=== PATIENT | female | born 1990 | race Caucasian/White ===

== ENCOUNTER 2017-02-07 12:51 | Emergency (ER) | payer OTHER ==
[~2017-02-07] VITALS: Ht 177.8 cm; Wt 71.4 kg
[~2017-02-07 12:51] MED LIST: PRENTAB26 PO
[2017-02-07 12:52] VITALS: TEMP 36.5; Ht 177.8 cm; Wt 71.4 kg
[2017-02-07] MEDS ORDERED: SODIUM CHLORIDE 0.9% 1000ML 1,000 ML IV STA (13:06)
[2017-02-07] MEDS ORDERED: ONDANSETRON INJ 2 MG/ML 2 ML VIAL IV STA (13:06)
--- NOTE | 2017-02-07 13:11 | EMERGENCY ROOM VISIT NOTE ---
History First contact with patient: 12:59 Chief Complaint: ABDOMINAL PAIN Stated Complaint: INTENSE UPPER ABD PAIN,VOMITTING History of Present Illness The patient is a 26 year old female who presents to the Emergency Department by private vehicle for evaluation of her epigastric pain. She reports that she worked a double shift last night and upon returning home, developed intense pain in her epigastrium. She tried to sleep, but her symptoms worsened. She describes pain to her back as well. She tried Pepto-Bismol without relief of symptoms. She took a warm shower which seemed to make her symptoms worse. She tried eating, but vomited her meal. There was no blood in her vomit. She reports no history of similar symptoms. She denies any previous history of abdominal surgeries. She rates her current discomfort as a 7/10. She denies any fevers, chills, headaches, dizziness, lightheadedness, chest pain, palpitations, shortness of breath, pleuritic pain, hemoptysis, hematochezia, melena, hematuria, or dysuria. She denies chance of . Review of Systems A complete 10-point Review of Systems was discussed with the patient, with pertinent positives and negatives listed in the History of Present Illness. All remaining Review of Systems questions can be considered negative unless otherwise specified. Past Medical/Surgical History Medical Problems: (1) Vaginal delivery Social History Smoking Status: Never Smoker Smokeless Tobacco Use: No Alcohol Use: none Drug Use: none Occupation Status: employed Current/Historical Medications Scheduled Control Pills ( Control Pills), 1 TAB PO DAILY Pantoprazole (Protonix), 40 MG PO DAILY Scheduled PRN Ondasetron Odt (Zofran Odt), 1 TAB SL Q6 PRN for Nausea or Vomiting Tramadol (Ultram), 1-2 TAB PO Q4H PRN for Pain Allergies Coded Allergies: Cefaclor (Verified Allergy, Unknown, 02/07/17) Physical Exam Vital Signs Date Time Temp Pulse Resp B/P Pulse Ox O2 Delivery O2 Flow Rate FiO2 02/07/17 15:53 71 14 109/66 99 02/07/17 15:17 71 14 101/64 100 Room Air 02/07/17 13:47 60 16 127/80 98 Room Air 02/07/17 13:07 63 02/07/17 12:52 36.5 66 18 128/86 98 Room Air Pain Rating (0-10): 7 Physical Exam VITAL SIGNS - Vital signs and nursing notes were reviewed. GENERAL - 26-year-old female appearing her stated age who is in no acute distress. Communicates well with provider and answers questions appropriately. NECK - Neck with FROM. Supple to palpation. No nuchal rigidity. LUNGS - Chest wall symmetric without accessory muscle use, intercostals retractions, or central cyanosis. Normal vesicular breath sounds CTA B/L. No wheezes, rales, or rhonchi appreciated. CARDIAC - RRR with S1/S2. No murmur, rubs, or gallops appreciated. ABDOMEN - Abdominal contour flat and without pulsations or visible masses. BS normoactive all four quadrants. Moderate tenderness to palpation appreciated in the epigastrium and RUQ. No guarding. No Rebound Tenderness. Negative Rovsing' s. Negative Wylie's. No palpable masses, hepatosplenomegaly, or ascites noted. PSYCH - A&Ox3 and cooperates fully with examiner. Pt is very pleasant and interacts well with examiner. Medical Decision & Procedures ER Provider Diagnostic Interpretation: Radiological imaging and reports were reviewed by myself. Radiologist's Interpretation as follows: ABDOMINAL ULTRASOUND, RIGHT UPPER QUADRANT HISTORY: RUQ/epigastric abd pain. COMPARISON: None. FINDINGS: Pancreas: The pancreatic tail is obscured by overlying bowel gas. The remaining portions of the pancreas are within normal limits. Liver: Mildly enlarged measuring 19 cm in length. No hepatic masses. Gallbladder: No gallbladder wall thickening. No gallstones. A 7 mm echogenic nodule at the fundus. This is nonmobile and favors a polyp. CBD: 5 mm. Right kidney: No hydronephrosis. IMPRESSION: 1. A 7 mm polyp at the gallbladder fundus. Follow-up should be performed to ensure stability. 2. No gallstones. 3. Mild hepatomegaly. Laboratory Results 02/07/17 13:20 Red Blood Count 4.53, Mean Corpuscular Volume 88.1, Mean Corpuscular Hemoglobin 30.7, Mean Corpuscular Hemoglobin Concent 34.8, Mean Platelet Volume 10.2, Neutrophils (%) (Auto) 65.2, Lymphocytes (%) (Auto) 27.5, Monocytes (%) (Auto) 6.2, Eosinophils (%) (Auto) 0.3, Basophils (%) (Auto) 0.3, Neutrophils # (Auto) 4.11, Lymphocytes # (Auto) 1.73, Monocytes # (Auto) 0.39, Eosinophils # (Auto) 0.02, Basophils # (Auto) 0.02 02/07/17 13:20 Test 02/07/17 12:58 02/07/17 13:20 Urine Color YELLOW Urine Appearance CLOUDY (CLEAR) Urine pH 5.0 (4.5-7.5) Urine Specific [place] 1.025 (1.000-1.030) Urine Protein NEG (NEG) Urine Glucose (UA) NEG (NEG) Urine Ketones NEG (NEG) Urine Occult Blood NEG (NEG) Urine Nitrite NEG (NEG) Urine Bilirubin NEG (NEG) Urine Urobilinogen NEG (NEG) Urine Leukocyte Esterase MODERATE (NEG) Urine WBC (Auto) 10-30 /hpf (0-5) Urine RBC (Auto) 0-4 /hpf (0-4) Urine Hyaline Casts (Auto) 1-5 /lpf (0-5) Urine Epithelial Cells (Auto) >30 /lpf (0-5) Urine Bacteria (Auto) 1+ (NEG) Urine Test NEG (NEG) White Blood Count 6.30 K/uL (4.8-10.8) Red Blood Count 4.53 M/uL (4.2-5.4) Hemoglobin 13.9 g/dL (12.0-16.0) Hematocrit 39.9 % (37-47) Mean Corpuscular Volume 88.1 fL (80-100) Mean Corpuscular Hemoglobin 30.7 pg (25-34) Mean Corpuscular Hemoglobin Concent 34.8 g/dl (32-36) Platelet Count 233 K/uL (130-400) Mean Platelet Volume 10.2 fL (7.4-10.4) Neutrophils (%) (Auto) 65.2 % Lymphocytes (%) (Auto) 27.5 % Monocytes (%) (Auto) 6.2 % Eosinophils (%) (Auto) 0.3 % Basophils (%) (Auto) 0.3 % Neutrophils # (Auto) 4.11 K/uL (1.4-6.5) Lymphocytes # (Auto) 1.73 K/uL (1.2-3.4) Monocytes # (Auto) 0.39 K/uL (0.11-0.59) Eosinophils # (Auto) 0.02 K/uL (0-0.5) Basophils # (Auto) 0.02 K/uL (0-0.2) RDW Standard Deviation 40.4 fL (36.4-46.3) RDW Coefficient of Variation 12.6 % (11.5-14.5) Immature Granulocyte % (Auto) 0.5 % Immature Granulocyte # (Auto) 0.03 K/uL (0.00-0.02) Anion Gap 9.0 mmol/L (3-11) Est Creatinine Clear Calc Drug Dose 111.4 ml/min Estimated GFR () 113.7 Estimated GFR (Non- 98.1 BUN/Creatinine Ratio 18.3 (10-20) Calcium Level 9.5 mg/dl (8.5-10.1) Total Bilirubin 0.4 mg/dl (0.2-1) Aspartate Amino Transf (AST/SGOT) 17 U/L (15-37) Alanine Aminotransferase (ALT/SGPT) 35 U/L (12-78) Alkaline Phosphatase 66 U/L (45-117) Total Protein 8.7 gm/dl (6.4-8.2) Albumin 4.2 gm/dl (3.4-5.0) Globulin 4.5 gm/dl (2.5-4.0) Albumin/Globulin Ratio 0.9 (0.9-2) Lipase 123 U/L (73-393) Medications Administered Medications (Trade) Dose Ordered Sig/Gil Route Start Time Stop Time Status Last Admin Dose Admin Sodium Chloride (Nss 1000ml) 1,000 ml @ 200 mls/hr Q5H STAT IV 02/07/17 13:06 02/07/17 16:11 DC 02/07/17 13:41 200 MLS/HR Miscellaneous Medication (Gi Cocktail) 24 ml NOW ONCE PO 02/07/17 13:15 02/07/17 13:16 DC 02/07/17 13:42 24 ML Ondansetron HCl (Zofran Inj) 4 mg NOW STAT IV 02/07/17 13:06 02/07/17 13:09 DC 02/07/17 13:41 4 MG Lidocaine HCl (Viscous Lidocaine 2% Soln) 20 ml STK-MED ONCE .ROUTE 02/07/17 13:41 02/07/17 13:42 DC 02/07/17 13:39 20 ML Al Hydroxide/Mg Hydroxide (Maalox Susp) 30 ml STK-MED ONCE .ROUTE 02/07/17 13:41 02/07/17 13:42 DC 02/07/17 13:38 30 ML Morphine Sulfate 2 mg 2 mg NOW STAT IV 02/07/17 14:51 02/07/17 14:52 DC 02/07/17 15:10 2 MG Pantoprazole Sodium/Syringe (Protonix Inj/ Syringe) 10 ml @ 5 mls/min NOW ONCE IV 02/07/17 15:00 02/07/17 15:01 DC 02/07/17 15:10 5 MLS/MIN ED Course Patient was seen and evaluated by myself. Labs were drawn, saline lock in place. The patient was hydrated with normal saline at a rate of 200 mL per hour. She was treated with 4 mg Zofran and a GI cocktail. Gallbladder ultrasound was ordered. Laboratory results demonstrate no acute leukocytosis, worrisome anemia, or bandemia. The patient has no significant electrolyte abnormalities. Urinalysis does not suggest infection.: Her ultrasound as above. She reports persistent discomfort. She was treated with 2 mg morphine and IV Protonix. The patient was reevaluated and reports feeling much better at this time. The patient was educated on following up the next 24-48 hours with her primary care provider for repeat abdominal exam. She was placed on Protonix as well as Zofran and Ultram for home. She will return to the emergency department in the setting of any change or worsening symptoms. Patient discharged home afebrile and in good condition. Medical Decision Given the patient's presentation and stated complaints, I did elect to perform the above-mentioned workup. The patient presents today with epigastric abdominal discomfort. She has no fever leukocytosis. She has minimal discomfort in her epigastrium. She is not drank alcohol recently. She has no chest pain. Her labs are concerning at this point. She responded well to pain medication as well as Protonix. She will be treated with Protonix at home. She will follow closely with her primary care provider in 24-48 hours for repeat abdominal exam or return to the emergency department for changing/ worsening symptoms. Patient educated on worrisome symptoms for return visit to the emergency department. Patient discharged home afebrile and in good condition. In the evaluation and treatment of this patient, the following differential diagnoses were considered: Cholecystitis, ascending cholangitis, choledocholithiasis, gastritis, gastroenteritis, retrocecal appendicitis, bowel perforation, inflammatory bowel, ACS, CT, PE, amongst others. Impression Primary Impression: Epigastric abdominal pain Departure Information Dispostion Home / Self-Care Condition GOOD Prescriptions Pantoprazole (Protonix) 40 Mg Tab 40 MG PO DAILY for 14 Days, #14 TAB Prov: Yonathan Santo PA-C 02/07/17 Tramadol (Ultram) 50 Mg Tab 1-2 TAB PO Q4H Y for Pain, #10 TAB For Initial Treatment Prov: Yonathan Santo PA-C 02/07/17 Ondasetron Odt (ZOFRAN ODT) 4 Mg Tab 1 TAB SL Q6 Y for Nausea or Vomiting for 5 Days, #20 TAB Prov: Yonathan Santo PA-C 02/07/17 Referrals No Doctor, Assigned (PCP) Patient Instructions Abdominal Pain - [facility], [facility] Additional Instructions You have been treated in the Emergency Department for your Abdominal Pain. Laboratory results and Imaging studies have ruled out any emergent or surgical issues that might be causing you this pain. You should take Protonix as prescribed. This is a drug that will help with any possible indigestion that might be contributing to your pain/discomfort. You should take this medicine EVERY day for the best results. This medicine is not intended to be used for immediate relief of symptoms, but rather to reduce the risk of recurrence of symptoms. You can consider using TUMS/Maalox for relief of any indigestion that you might be experiencing. This drug is fast acting and can be used for immediate relief of your indigestion symptoms. You have been prescribed Zofran to be used for any nausea or vomiting. Take as prescribed. You have been prescribed Ultram to be used for pain control. You cannot drive or consume alcohol while on this medicine. This medicine should only be used for pain that cannot be controlled with [id number]-[id number] pain medicines. You should eat a bland diet for the next few days. Some suggested bland dietary foods: Bananas, Rice, Applesauce, [place], or Boiled Chicken. These foods are easy to digest and help you to recover at a faster rate. All meals for the next few days should be small to cement mason helper in bowel rest. For pain control, you can use the following [id number]-oenhrel medicines (if >12 yo): - Regular strength (325mg/tab) Tylenol (acetaminophen) 2 tabs every 4-6 hours as needed. Do not exceed 12 tablets in a 24 hour period. Avoid taking more than 4 grams (4000 mg) of Tylenol per day. This includes any other sources of acetaminophen you may take on a regular basis. - Regular strength (200 mg/tab) Advil (ibuprofen) 1-2 tabs every 4-6 hours as needed. Do not exceed a dose of 3200 mg per day. You should schedule a follow-up appointment with your Primary Care Provider in 1 -2 days for further evaluation from today's Emergency Department visit. Your Primary Care Provider should be involved in the addition of any new medications. Your Primary Care Provider may also refer you to a Ekg Technician, a doctor who specializes in the digestive system. Return to the Emergency Department if your current symptoms worsen despite treatment course outlined above, or if you develop any of the following symptoms : worsening abdominal pain, associated chest or back pain, worsening nausea/ vomiting, dizziness, shortness of breath, blood in your vomit, or fainting.
[2017-02-07] MEDS ORDERED: GI COCKTAIL PO ONE (13:15)
[2017-02-07] MEDS ORDERED: LIDOCAINE HCL 2% VISC SOLN 20 ML UDC ONE (13:41)
[2017-02-07] MEDS ORDERED: ALUMINUM/MAGNESIUM SUSP 30 ML UDC ONE (13:41)
[2017-02-07 13:50] LABS: BASO % 0.3 %; BASO ABS # 0.02 K/uL (0-0.2); COMPLETE YES; EOS % 0.3 %; HEMATOCRIT 39.9 % (37-47); IG% 0.5 %; LYMPH % 27.5 %; LYMPH ABS # 1.73 K/uL (1.2-3.4); MEAN CELL VOLUME 88.1 fL (80-100); MEAN CORPUSCULAR HEMOGLOBIN 30.7 pg (25-34); MEAN CORPUSCULAR HGB CONC 34.8 g/dl (32-36); MEAN PLATELET VOLUME 10.2 fL (7.4-10.4); MONO % 6.2 %; NEUT % 65.2 %; PLATELET COUNT 233 K/uL (130-400); RED BLOOD COUNT 4.53 M/uL (4.2-5.4)
[2017-02-07 14:00] LABS: URINE APPEARANCE CLOUDY (CLEAR); URINE BILIRUBIN NEG (NEG); URINE COLOR YELLOW; URINE EPITHELIAL CELL AUTO >30 /lpf (0-5); URINE NITRITE NEG (NEG); URINE SPECIFIC GRAVITY 1.025 (1.000-1.030); UROBILINOGEN NEG (NEG); ZZUR CULT IF INDIC CLEAN CATCH YES
[2017-02-07 14:03] LABS: MANUAL MICROSCOPIC REQUIRED? NO; REVIEW REQ? NO
[2017-02-07 14:11] LABS: BUN/CREATININE RATIO 18.3 (10-20); CALCIUM 9.5 mg/dl (8.5-10.1); CREATININE 0.82 mg/dl (0.60-1.20); POTASSIUM 3.3 mmol/L (3.5-5.1)
[2017-02-07 14:14] LABS: ALB/GLOB RATIO 0.9 (0.9-2)
--- NOTE | 2017-02-07 14:35 | DIAGNOSTIC IMAGING REPORT ---
ABDOMINAL ULTRASOUND, RIGHT UPPER QUADRANT HISTORY: RUQ/epigastric abd pain. COMPARISON: None. FINDINGS: Pancreas: The pancreatic tail is obscured by overlying bowel gas. The remaining portions of the pancreas are within normal limits. Liver: Mildly enlarged measuring 19 cm in length. No hepatic masses. Gallbladder: No gallbladder wall thickening. No gallstones. A 7 mm echogenic nodule at the fundus. This is nonmobile and favors a polyp. CBD: 5 mm. Right kidney: No hydronephrosis. IMPRESSION: 1. A 7 mm polyp at the gallbladder fundus. Follow-up should be performed to ensure stability. 2. No gallstones. 3. Mild hepatomegaly. Electronically signed by: Mahendra Uribe M.D. 02/07/2017 2:33 PM Dictated Date/Time: 02/07/2017 2:31 PM
[2017-02-07] MEDS ORDERED: BCPILLS PO (14:46)
[2017-02-07] MEDS ORDERED: MoRPHine SULFATE 2 MG/ML CARP IV STA (14:51)
[2017-02-07] MEDS ORDERED: PANTOprazole INJ 40 MG in SYRINGE 0 ML IV ONE (15:00)
[2017-02-07] MEDS ORDERED: TRAM-10 PO (15:29)
[2017-02-07] MEDS ORDERED: PANT40TA PO (15:29)
[2017-02-07] MEDS ORDERED: ONDA4TAB10 SL (15:29)
[2017-02-07 15:53] VITALS: BP 109/66; PULSE 71; O2SAT 99
== END 2017-02-07 15:50 | disposition home or self-care (01) ==
LOC: C.EDB 12:53 → C.EDC 15:50
DX: R10.13 Epigastric pain (principal); Z79.899 Other long term (current) drug therapy; Z88.8 Allergy status to other drugs, medicaments and biological substances

== ENCOUNTER 2017-06-13 09:00 | Inpatient (IN) | payer SELFPAY ==
[~2017-06-13] VITALS: Ht 177.8 cm; Wt 73.0 kg
[~2017-06-13 09:00] MED LIST changes: +BCPILLS PO; -PRENTAB26 PO; +TRAM-10 PO
[2017-06-13] MEDS ORDERED: ONDANSETRON INJ 2 MG/ML 2 ML VIAL IV STA (09:12)
[2017-06-13] MEDS ORDERED: SODIUM CHLORIDE 0.9% 1000ML 1,000 ML IV STA (09:12)
[2017-06-13] MEDS ORDERED: MoRPHine SULFATE 4 MG/ML 1 ML CARP\\VIAL IV STA ×2 (09:12→11:58)
--- NOTE | 2017-06-13 09:23 | EMERGENCY ROOM VISIT NOTE ---
History First contact with patient: 09:05 Chief Complaint: ABDOMINAL PAIN Stated Complaint: ABD PAIN History of Present Illness The patient is a 27 year old female who presents to the Emergency Room with complaints of upper abdominal pain. The patient states her symptoms started around 7:30 AM. She states that there is a bandlike pain in the upper abdomen. She states it is primarily in the epigastrium and right upper quadrant. The patient rates her discomfort a 7/10. She patient has had nausea and vomiting. The patient had a similar episode earlier this year but had not had any trouble since and therefore did not follow up. She denies any earache, sore throat, cough, fever. She denies any urinary symptoms. She denies any hematemesis, melena or hematochezia. The patient did not initially share her recent history. She states that last month she underwent an elective of twins at 13 weeks' gestation. This was done surgically. She has done well since then. She has had some bleeding but no significant change in the bleeding and discharge. Review of Systems A 10 system review of systems was completed with positives and pertinent negatives listed in the HPI. Past Medical/Surgical History Medical Problems: (1) Abdominal pain (2) Gallbladder polyp (3) Vaginal delivery Surgical Problems: (1) H/O Social History Smoking Status: Never Smoker Alcohol Use: none Drug Use: none Occupation Status: employed Current/Historical Medications Scheduled Control Pills ( Control Pills), 1 TAB PO DAILY Physical Exam Vital Signs Date Time Temp Pulse Resp B/P (MAP) Pulse Ox O2 Delivery O2 Flow Rate FiO2 06/13/17 11:05 52 109/64 100 06/13/17 09:02 36.7 86 16 125/85 95 Room Air Physical Exam VITALS: Vitals are noted on the nurse's note and reviewed by myself. Vital signs stable. GENERAL: This is a 27-year-old femaleno acute distress, nondiaphoretic, well- developed well-nourished. SKIN: The skin was without rashes, erythema, edema, or bruising. There is no tenting of the skin. Capillary reflex less than 2 seconds. HEAD: Normocephalic atraumatic. EARS: The external ears are normal in appearance. EYES: Pupils equal round and reactive to light and accommodation. Conjunctivae without injection, sclerae without icterus. Extraocular movements intact. NOSE: Patent, turbinates without inflammation or discharge. MOUTH: Mucous membranes moist. Tonsils are not enlarged. Pharynx without erythema or exudate. Uvula midline. Airway patent. Tongue does not deviate. NECK: Supple without nuchal rigidity. No JVD. HEART: Regular rate and rhythm without murmurs gallops or rubs. LUNGS: Clear to auscultation bilaterally without wheezes, rales or rhonchi. No retractions or accessory muscle use. ABDOMEN: Positive bowel sounds x 4. Soft, marked right upper quadrant tenderness, moderate epigastric tenderness, without masses or organomegaly. Wylie sign positive. MUSCULOSKELETAL: No muscle atrophy, erythema, or edema noted. Full range of motion in all extremities. Strength 5/5 throughout. NEURO: Patient was alert and oriented to person place and time. No focal neurological deficits. Medical Decision & Procedures ER Provider Diagnostic Interpretation: CT OF THE ABDOMEN AND PELVIS WITH CONTRAST CLINICAL HISTORY: Upper abdominal pain. Recent elective . COMPARISON STUDY: Right upper quadrant ultrasound performed earlier today. TECHNIQUE: Following IV administration of 116 mL of Optiray-320, axial images of the abdomen and pelvis were obtained from the lung bases to the proximal femurs. Images were reviewed in the axial, sagittal, and coronal planes. IV contrast was administered without complication. A dose lowering technique was utilized adhering to the principles of ALARA. CT DOSE: 329.11 mGy.cm FINDINGS: Lung bases are clear. The liver, spleen, adrenal glands, kidneys and pancreas are normal. There is no biliary or pancreatic ductal dilatation. A 5 mm calcific density within the dependent aspect of the gallbladder represents a stone. This likely corresponds to the abnormality on prior ultrasound. There is trace pericholecystic fluid extending into the mukul hepatis. The gallbladder is not distended. There is no evidence for a bowel obstruction. The appendix is normal. There is mild thickening of the endometrium which appears slightly heterogeneous. The endometrium measures 1.1 cm in thickness. There is no lymphadenopathy. IMPRESSION: 1. Cholelithiasis with trace pericholecystic fluid. If clinical suspicion for acute cholecystitis, a hepatobiliary scan could be obtained. 2. Slightly thickened heterogeneous endometrium. This may be related to the phase of menstrual cycle however could be correlated with beta hCG levels to exclude the possibility of retained products of conception given the clinical history. 3. Normal appendix. No bowel obstruction. GALLBLADDER-ABD LIMITED HISTORY: 27 years-old Female acute right upper quadrant abdominal pain. COMPARISON: Right upper quadrant ultrasound 02/07/2017 TECHNIQUE: Multiple real-time sonographic images of the abdominal right upper quadrant were obtained assessing grayscale appearance and color flow. FINDINGS: Pancreas is partially disc or by bowel gas with the imaged portions appearing to be within normal limits. Liver measures up to 19.7 cm and demonstrates no focal mass lesions. Hepatic parenchyma is mildly echogenic which may reflect underlying fatty infiltration. The right kidney measures 11.4 x 4.6 x 5.0 cm and is unremarkable. Again noted is a nonmobile echogenic mural based lesion along the dependent fundal gallbladder, 7 mm which appears unchanged from comparison suggesting gallbladder polyp without significant change. No gallbladder wall thickening or shadowing cholelithiasis. Common bile duct is normal, 0.5 cm. IMPRESSION: 1. No cholelithiasis or sonographic evidence of acute cholecystitis. 2. Unchanged 7 mm gallbladder polyp. This could be followed in another 3-6 months to confirm stability. 3. No biliary ductal dilation. 4. Probable mild fatty infiltration of the liver. Laboratory Results 06/13/17 09:22 Red Blood Count 4.13, Mean Corpuscular Volume 89.8, Mean Corpuscular Hemoglobin 30.5, Mean Corpuscular Hemoglobin Concent 34.0, Mean Platelet Volume 10.3, Neutrophils (%) (Auto) 49.9, Lymphocytes (%) (Auto) 41.7, Monocytes (%) (Auto) 6.5, Eosinophils (%) (Auto) 1.5, Basophils (%) (Auto) 0.2, Neutrophils # (Auto) 2.59, Lymphocytes # (Auto) 2.17, Monocytes # (Auto) 0.34, Eosinophils # (Auto) 0.08, Basophils # (Auto) 0.01 06/13/17 09:22 Test 06/13/17 09:22 White Blood Count 5.20 K/uL (4.8-10.8) Red Blood Count 4.13 M/uL (4.2-5.4) Hemoglobin 12.6 g/dL (12.0-16.0) Hematocrit 37.1 % (37-47) Mean Corpuscular Volume 89.8 fL (80-100) Mean Corpuscular Hemoglobin 30.5 pg (25-34) Mean Corpuscular Hemoglobin Concent 34.0 g/dl (32-36) Platelet Count 206 K/uL (130-400) Mean Platelet Volume 10.3 fL (7.4-10.4) Neutrophils (%) (Auto) 49.9 % Lymphocytes (%) (Auto) 41.7 % Monocytes (%) (Auto) 6.5 % Eosinophils (%) (Auto) 1.5 % Basophils (%) (Auto) 0.2 % Neutrophils # (Auto) 2.59 K/uL (1.4-6.5) Lymphocytes # (Auto) 2.17 K/uL (1.2-3.4) Monocytes # (Auto) 0.34 K/uL (0.11-0.59) Eosinophils # (Auto) 0.08 K/uL (0-0.5) Basophils # (Auto) 0.01 K/uL (0-0.2) RDW Standard Deviation 41.1 fL (36.4-46.3) RDW Coefficient of Variation 12.6 % (11.5-14.5) Immature Granulocyte % (Auto) 0.2 % Immature Granulocyte # (Auto) 0.01 K/uL (0.00-0.02) Urine Color YELLOW Urine Appearance CLEAR (CLEAR) Urine pH 6.0 (4.5-7.5) Urine Specific [place] 1.025 (1.000-1.030) Urine Protein NEG (NEG) Urine Glucose (UA) NEG (NEG) Urine Ketones NEG (NEG) Urine Occult Blood NEG (NEG) Urine Nitrite NEG (NEG) Urine Bilirubin NEG (NEG) Urine Urobilinogen NEG (NEG) Urine Leukocyte Esterase TRACE (NEG) Urine WBC (Auto) 1-5 /hpf (0-5) Urine RBC (Auto) 0-4 /hpf (0-4) Urine Hyaline Casts (Auto) 1-5 /lpf (0-5) Urine Epithelial Cells (Auto) >30 /lpf (0-5) Urine Bacteria (Auto) NEG (NEG) Urine Test POS (NEG) Anion Gap 7.0 mmol/L (3-11) Est Creatinine Clear Calc Drug Dose 129.4 ml/min Estimated GFR () 136.7 Estimated GFR (Non- 117.9 BUN/Creatinine Ratio 26.9 (10-20) Calcium Level 8.8 mg/dl (8.5-10.1) Magnesium Level 2.1 mg/dl (1.8-2.4) Total Bilirubin 0.2 mg/dl (0.2-1) Aspartate Amino Transf (AST/SGOT) 11 U/L (15-37) Alanine Aminotransferase (ALT/SGPT) 16 U/L (12-78) Alkaline Phosphatase 67 U/L (45-117) Total Protein 8.0 gm/dl (6.4-8.2) Albumin 3.9 gm/dl (3.4-5.0) Globulin 4.1 gm/dl (2.5-4.0) Albumin/Globulin Ratio 1.0 (0.9-2) Lipase 124 U/L (73-393) Human Chorionic Gonadotropin, Quant 24 mIU/mL Medications Administered Medications (Trade) Dose Ordered Sig/Gil Route Start Time Stop Time Status Last Admin Dose Admin Sodium Chloride 1,000 ml @ 999 mls/hr Q1H1M STAT IV 06/13/17 09:12 06/13/17 10:12 DC 06/13/17 09:25 999 MLS/HR Ondansetron HCl (Zofran Inj) 4 mg NOW STAT IV 06/13/17 09:12 06/13/17 09:15 DC 06/13/17 09:26 4 MG Morphine Sulfate (MoRPHine SULFATE INJ) 4 mg NOW STAT IV 06/13/17 09:12 06/13/17 09:15 DC 06/13/17 09:26 4 MG Morphine Sulfate (MoRPHine SULFATE INJ) 4 mg NOW STAT IV 06/13/17 11:58 06/13/17 11:59 DC 06/13/17 12:20 4 MG ED Course The patient was seen and examined. Previous visits were reviewed. The patient does not have a fever or leukocytosis. She does not have any significant electrolyte abnormalities. Lipase is not elevated. Quantitative hCG is 24. Urinalysis suggests contamination. Urine test was positive. Ultrasound of the gallbladder suggests a polyp but no obvious acute cholecystitis or cholelithiasis A CT scan of the abdomen and pelvis with IV contrast was obtained and suggests acute cholecystitis after discussion with Dr. Silverio of radiology. The patient appears to have a gallstone and pericholecystic fluid. The patient was hydrated with normal saline solution She was given a total of 8 mg IV morphine The patient presents to the emergency department with right upper quadrant abdominal pain. She has a positive Wylie sign on examination. She does not have a fever or leukocytosis. However, on CT imaging there is suggestion of acute cholecystitis. The patient will require further evaluation and management in the hospital. I discussed the case with the hospitalist service and they will evaluate the patient. The patient underwent elective last month. The patient's quantitative hCG is 24. I suspect that this is a down trending of the hCG. The patient does not have any complaints of lower abdominal pain or cramping. The case was discussed with Dr. Roberts who agrees with the assessment and treatment plan. Medical Decision DIFFERENTIAL DIAGNOSIS: Hepatitis, cholecystitis, cholangitis, biliary colic, pancreatitis, pneumonia, subdiaphragmatic abscess, appendicitis, inguinal hernia , nephrolithiasis, inflammatory bowel disease, mesenteric adenitis, peptic ulcer disease, GERD, gastritis, pancreatitis, myocardial infarction, pericarditis, ruptured aortic aneurysm, appendicitis, gastroenteritis, bowel obstruction, splenic infarct, diverticulitis, mesenteric ischemia, metabolic, peritonitis, among others. Medication Reconcilliation Current Medication List: was personally reviewed by [place] Blood Pressure Screening Patient's blood pressure: Normal blood pressure Blood pressure disposition: Did not require urgent referral Impression Primary Impression: Cholecystitis Additional Impression: History of elective Departure Information Dispostion Admitted as an inpatient Referrals Ben Cantor M.D. (PCP) Patient Instructions My [facility] Problem Qualifiers
[2017-06-13 09:42] LABS: BASO % 0.2 %; BASO ABS # 0.01 K/uL (0-0.2); COMPLETE YES; EOS % 1.5 %; HEMATOCRIT 37.1 % (37-47); IG% 0.2 %; LYMPH % 41.7 %; LYMPH ABS # 2.17 K/uL (1.2-3.4); MEAN CELL VOLUME 89.8 fL (80-100); MEAN CORPUSCULAR HEMOGLOBIN 30.5 pg (25-34); MEAN PLATELET VOLUME 10.3 fL (7.4-10.4); MONO % 6.5 %; NEUT % 49.9 %; PLATELET COUNT 206 K/uL (130-400); RED BLOOD COUNT 4.13 M/uL (4.2-5.4)
[2017-06-13 09:48] LABS: URINE APPEARANCE CLEAR (CLEAR); URINE BILIRUBIN NEG (NEG); URINE COLOR YELLOW; URINE EPITHELIAL CELL AUTO >30 /lpf (0-5); URINE NITRITE NEG (NEG); URINE SPECIFIC GRAVITY 1.025 (1.000-1.030); UROBILINOGEN NEG (NEG); ZZUR CULT IF INDIC CLEAN CATCH NO
[2017-06-13 09:51] LABS: MANUAL MICROSCOPIC REQUIRED? NO; REVIEW REQ? NO
[2017-06-13 10:00] LABS: BUN/CREATININE RATIO 26.9 (10-20); CALCIUM 8.8 mg/dl (8.5-10.1); CREATININE 0.7 mg/dl (0.60-1.20); POTASSIUM 3.3 mmol/L (3.5-5.1)
--- NOTE | 2017-06-13 10:38 | DIAGNOSTIC IMAGING REPORT ---
GALLBLADDER-ABD LIMITED HISTORY: 27 years-old Female acute right upper quadrant abdominal pain. COMPARISON: Right upper quadrant ultrasound 02/07/2017 TECHNIQUE: Multiple real-time sonographic images of the abdominal right upper quadrant were obtained assessing grayscale appearance and color flow. FINDINGS: Pancreas is partially disc or by bowel gas with the imaged portions appearing to be within normal limits. Liver measures up to 19.7 cm and demonstrates no focal mass lesions. Hepatic parenchyma is mildly echogenic which may reflect underlying fatty infiltration. The right kidney measures 11.4 x 4.6 x 5.0 cm and is unremarkable. Again noted is a nonmobile echogenic mural based lesion along the dependent fundal gallbladder, 7 mm which appears unchanged from comparison suggesting gallbladder polyp without significant change. No gallbladder wall thickening or shadowing cholelithiasis. Common bile duct is normal, 0.5 cm. IMPRESSION: 1. No cholelithiasis or sonographic evidence of acute cholecystitis. 2. Unchanged 7 mm gallbladder polyp. This could be followed in another 3-6 months to confirm stability. 3. No biliary ductal dilation. 4. Probable mild fatty infiltration of the liver. The above report was generated using voice recognition software. It may contain grammatical, syntax or spelling errors. Electronically signed by: Edwardo Brody M.D. 06/13/2017 10:36 AM Dictated Date/Time: 06/13/2017 10:32 AM
[2017-06-13] MEDS ORDERED: OPTIRAY 320 IV PRN (11:15)
--- NOTE | 2017-06-13 11:40 | DIAGNOSTIC IMAGING REPORT ---
CT OF THE ABDOMEN AND PELVIS WITH CONTRAST CLINICAL HISTORY: Upper abdominal pain. Recent elective . COMPARISON STUDY: Right upper quadrant ultrasound performed earlier today. TECHNIQUE: Following IV administration of 116 mL of Optiray-320, axial images of the abdomen and pelvis were obtained from the lung bases to the proximal femurs. Images were reviewed in the axial, sagittal, and coronal planes. IV contrast was administered without complication. A dose lowering technique was utilized adhering to the principles of ALARA. CT DOSE: 329.11 mGy.cm FINDINGS: Lung bases are clear. The liver, spleen, adrenal glands, kidneys and pancreas are normal. There is no biliary or pancreatic ductal dilatation. A 5 mm calcific density within the dependent aspect of the gallbladder represents a stone. This likely corresponds to the abnormality on prior ultrasound. There is trace pericholecystic fluid extending into the mukul hepatis. The gallbladder is not distended. There is no evidence for a bowel obstruction. The appendix is normal. There is mild thickening of the endometrium which appears slightly heterogeneous. The endometrium measures 1.1 cm in thickness. There is no lymphadenopathy. IMPRESSION: 1. Cholelithiasis with trace pericholecystic fluid. If clinical suspicion for acute cholecystitis, a hepatobiliary scan could be obtained. 2. Slightly thickened heterogeneous endometrium. This may be related to the phase of menstrual cycle however could be correlated with beta hCG levels to exclude the possibility of retained products of conception given the clinical history. 3. Normal appendix. No bowel obstruction. Electronically signed by: Jeff Silverio M.D. 06/13/2017 11:38 AM Dictated Date/Time: 06/13/2017 11:24 AM
[2017-06-13] MEDS ORDERED: PIPERACILLIN/TAZOBACTAM 3.375 GM/100ML D5W IV STA (13:02)
[2017-06-13] MEDS ORDERED: ONDANSETRON INJ 2 MG/ML 2 ML VIAL IV PRN (13:15)
[2017-06-13] MEDS ORDERED: SODIUM CHLORIDE 0.9% 1000ML 1,000 ML IV SCH (13:30)
--- NOTE | 2017-06-13 13:48 | History and Physical ---
History & Physical Date & Time of Service: Jun 13, 2017 at 13:11 Chief Complaint: Abd Pain Primary Care Physician: Ben Cantor M.D. History of Present Illness Source: patient, hospital records This is a 27 year old female who presents to the ED with RUQ abdominal pain. Patient was seen in [facility] ER in January 2017 for RUQ pain and ultrasound showed gallbladder polyp. She was sent home and did not have recurrence until this morning, when she developed pain in RUQ and epigastrium radiating to her back. She states pain waxes and wanes "like contractions". Has associated N/V with multiple episodes of yellow emesis. Nausea is resolved after Zofran given in ER. Pain is now controlled after 2 doses of IV morphine in ER. Last meal was salad at 11 pm last night. Had a normal formed BM this morning. Had surgical on May 07, 2017 of twins at between 11 to 13 weeks gestation per patient. Following procedure she had a few weeks of vaginal bleeding which stopped, then had 4 days of menstruation ending 2 days ago. She is on oral contraception. She denies fever, chills, chest pain, SOB, diarrhea, UTI symptoms. Past Medical/Surgical History Medical Problems: (1) Gallbladder polyp Status: Chronic (2) Vaginal delivery Status: Resolved Surgical Problems: (1) H/O Status: Chronic Family History Cardiac disorder GRANDMOTHER Diabetes mellitus GRANDFATHER GRANDMOTHER Social History Smoking Status: Never Smoker Alcohol Use: none Drug Use: none Occupational Status: employed (works as [employer]) Immunizations History of Influenza Vaccine: Unknown History of Tetanus Vaccine?: Unknown Multi-Drug Resistant Organisms History of MDRO: No Allergies Coded Allergies: Cefaclor (Verified Allergy, Unknown, POSSIBLE RASH CHILD, 06/13/17) PER GRAHAM OLGUIN [id number] INTERVIEW WITH PATIENT- PATIENT STATES ABOVE Home Medications Scheduled Control Pills ( Control Pills), 1 TAB PO DAILY Scheduled PRN Oxycodone/Acetaminophen 5MG/325MG (Percocet 5MG/325MG), 1-2 TABLETS PO Q4H PRN for Pain Review of Systems Ten systems reviewed and negative except as noted in HPI. Physical Exam Vital Signs Date Time Temp Pulse Resp B/P (MAP) Pulse Ox O2 Delivery O2 Flow Rate FiO2 06/13/17 11:05 52 109/64 100 06/13/17 09:02 36.7 86 16 125/85 95 Room Air General Appearance: WD/WN, no apparent distress Head: normocephalic, atraumatic Eyes: normal inspection, sclerae normal ENT: hearing grossly normal, pharynx normal Neck: supple, trachea midline Respiratory/Chest: lungs clear, normal breath sounds, no respiratory distress, no accessory muscle use Cardiovascular: regular rate, rhythm, no edema, no murmur Abdomen/GI: normal bowel sounds, soft, + pertinent finding (tender in RUQ. + Wylie's sign) Extremities/Musculoskelatal: no calf tenderness, no pedal edema Neurologic/Psych: alert, normal mood/affect, oriented x 3 Skin: normal color, warm/dry Diagnostics Laboratory Results Results Past 24 Hours Test 06/13/17 09:22 06/13/17 12:58 Range/Units White Blood Count 5.20 4.8-10.8 K/uL Red Blood Count 4.13 4.2-5.4 M/uL Hemoglobin 12.6 12.0-16.0 g/dL Hematocrit 37.1 37-47 % Mean Corpuscular Volume 89.8 80-100 fL Mean Corpuscular Hemoglobin 30.5 25-34 pg Mean Corpuscular Hemoglobin Concent 34.0 32-36 g/dl Platelet Count 206 130-400 K/uL Mean Platelet Volume 10.3 7.4-10.4 fL Neutrophils (%) (Auto) 49.9 % Lymphocytes (%) (Auto) 41.7 % Monocytes (%) (Auto) 6.5 % Eosinophils (%) (Auto) 1.5 % Basophils (%) (Auto) 0.2 % Neutrophils # (Auto) 2.59 1.4-6.5 K/uL Lymphocytes # (Auto) 2.17 1.2-3.4 K/uL Monocytes # (Auto) 0.34 0.11-0.59 K/uL Eosinophils # (Auto) 0.08 0-0.5 K/uL Basophils # (Auto) 0.01 0-0.2 K/uL RDW Standard Deviation 41.1 36.4-46.3 fL RDW Coefficient of Variation 12.6 11.5-14.5 % Immature Granulocyte % (Auto) 0.2 % Immature Granulocyte # (Auto) 0.01 0.00-0.02 K/uL Urine Color YELLOW Urine Appearance CLEAR CLEAR Urine pH 6.0 4.5-7.5 Urine Specific [place] 1.025 1.000-1.030 Urine Protein NEG NEG Urine Glucose (UA) NEG NEG Urine Ketones NEG NEG Urine Occult Blood NEG NEG Urine Nitrite NEG NEG Urine Bilirubin NEG NEG Urine Urobilinogen NEG NEG Urine Leukocyte Esterase TRACE NEG Urine WBC (Auto) 1-5 0-5 /hpf Urine RBC (Auto) 0-4 0-4 /hpf Urine Hyaline Casts (Auto) 1-5 0-5 /lpf Urine Epithelial Cells (Auto) >30 0-5 /lpf Urine Bacteria (Auto) NEG NEG Urine Test POS NEG Sodium Level 142 136-145 mmol/L Potassium Level 3.3 3.5-5.1 mmol/L Chloride Level 107 98-107 mmol/L Carbon Dioxide Level 28 21-32 mmol/L Anion Gap 7.0 3-11 mmol/L Blood Urea Nitrogen 19 7-18 mg/dl Creatinine 0.70 0.60-1.20 mg/dl Est Creatinine Clear Calc Drug Dose 129.4 ml/min Estimated GFR () 136.7 Estimated GFR (Non- 117.9 BUN/Creatinine Ratio 26.9 10-20 Random Glucose 95 70-99 mg/dl Calcium Level 8.8 8.5-10.1 mg/dl Total Bilirubin 0.2 0.2-1 mg/dl Aspartate Amino Transf (AST/SGOT) 11 15-37 U/L Alanine Aminotransferase (ALT/SGPT) 16 12-78 U/L Alkaline Phosphatase 67 45-117 U/L Total Protein 8.0 6.4-8.2 gm/dl Albumin 3.9 3.4-5.0 gm/dl Globulin 4.1 2.5-4.0 gm/dl Albumin/Globulin Ratio 1.0 0.9-2 Lipase 124 73-393 U/L Human Chorionic Gonadotropin, Quant 24 mIU/mL Diagnostic Radiology GALLBLADDER-ABD LIMITED IMPRESSION: 1. No cholelithiasis or sonographic evidence of acute cholecystitis. 2. Unchanged 7 mm gallbladder polyp. This could be followed in another 3-6 months to confirm stability. 3. No biliary ductal dilation. 4. Probable mild fatty infiltration of the liver. CT OF THE ABDOMEN AND PELVIS WITH CONTRAST IMPRESSION: 1. Cholelithiasis with trace pericholecystic fluid. If clinical suspicion for acute cholecystitis, a hepatobiliary scan could be obtained. 2. Slightly thickened heterogeneous endometrium. This may be related to the phase of menstrual cycle however could be correlated with beta hCG levels to exclude the possibility of retained products of conception given the clinical history. 3. Normal appendix. No bowel obstruction. Impression Assessment and Plan ACUTE CHOLECYSTITIS Presents with RUQ pain, N/V Clinical exam consistent with cholecystitis Afebrile, no leukocytosis CT abdomen shows cholelithiasis with pericholecystic fluid Will place on Zosyn, IVF's, PRN antiemetics and analgesics Clear liquid diet, NPO after midnight, plan for OR tomorrow AM Consult general surgery- discussed with Ryan Olivares PA-C and Dr. Ortega, appreciate input HYPOKALEMIA Check magnesium Replace and monitor ENDOMETRIAL THICKENING ELEVATED HCG Patient is s/p surgical on 05/07/17 of twins, gestational age between 11 -[address] a/p showed mild endometrial thickening (1.1 cm), Hcg = [address] Lara, who said Hcg can take 4-6 weeks to normalize, recommended checking pelvic ultrasound and recheck Hcg in AM to see if it is downtrending, no contraindication to proceeding with surgery if ultrasound WNL DVT PROPHYLAXIS SCD's FULL CODE DISPOSITION Admission med/ surg Follows with Dr. Cantor ([place]) for primary care Patient seen in collaboration with Dr. Barahona. Please see his addendum. Attending Addendum Pt was seen and seen and examined. Agreed with Graham DOWLING assessment and plan. 27 year old female who presents to the ED with RUQ abdominal pain associated with N/V. Patient was seen in [facility] ER in January 2017 for RUQ pain and ultrasound showed gallbladder polyp. General- No acute distress Head- atraumatic Eyes- PERRL, EOMI, anicteric ENT- oropharynx clear Neck- supple, no JVD, no adenopathy Lungs- clear to auscultation and percussion Heart- regular rhythm; no murmur Abdomen- +RUQ tender Extremities- no calf tenderness Neuro- alert, oriented x 3; PERRL, EOMI; no facial palsy Skin- warm & dry ACUTE CHOLECYSTITIS Presents with RUQ pain, N/V Clinical exam consistent with cholecystitis Afebrile, no leukocytosis CT abdomen shows cholelithiasis with pericholecystic fluid Starting on Zosyn, IVF's, PRN antiemetics and analgesics Consult general surgery Keep NPO Lab, imaging reviewed Please refer to [facility] PAC documentation for other problems. Cale Barahona MD VTE Prophylaxis VTE Risk Assessment Done? Y/N: Yes Risk Level: Moderate
[2017-06-13 14:00] VITALS: BP 116/75; PULSE 64; TEMP 36.8; O2SAT 98; Ht 177.8 cm; Wt 73.0 kg
[2017-06-13] MEDS ORDERED: PIPERACILL/TAZOBAC IV 3.375 GM in DEXTROSE 5% 100ML IV ONE (14:00)
[2017-06-13] MEDS ORDERED: PIPERACILL/TAZOBAC CONSULT ACTIVE PRN (14:30)
[2017-06-13] MEDS: NSS + 20MEQ KCL 1000ML 1,000 ML IV SCH (14:55)
[2017-06-13] MEDS: POTASSIUM CHLR 10 MEQ / WTR 10 MEQ in PREMIXED WATER 100 ML IV SCH ×3 (14:56→18:10)
--- NOTE | 2017-06-13 14:56 | CONSULTATION REPORT ---
DATE OF CONSULTATION: 06/13/2017 ATTENDING PHYSICIAN: Yoan Ortega MD REASON FOR CONSULT: Cholecystitis. HISTORY OF PRESENT ILLNESS: The patient is a 27-year-old female with epigastric pain that started earlier this morning, was followed by nausea and several episodes of vomiting. She had some mid back pain as well. No fevers or chills. She had a salad for dinner at work last evening around 11. She had a similar pain in January of this year, was seen in the Emergency Room and diagnosed with a gallbladder polyp. She has not had any further symptoms in the interim. No bloating, fatty food intolerance or nausea or vomiting. PAST MEDICAL HISTORY: No ongoing medical problems. PAST SURGICAL HISTORY: She had a recent 05/07/2017. SOCIAL HISTORY: She is , has 3 children at home. 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 FAMILY HISTORY: She has an aunt who has had cholecystectomy. No biliary disease in her parents that she knows of. REVIEW OF SYSTEMS: GENERAL: No fevers or chills. She is in good health. ABDOMEN: No bloating, no fatty food intolerance. RESPIRATORY: No cough. No history of asthma and nonsmoker. OBJECTIVE: GENERAL: She appears in no acute distress. VITAL SIGNS: Temperature 36.7, pulse 52, respirations 16, blood pressure 100/64, pulse ox 100% on room air. HEENT: Unremarkable. No scleral icterus. HEART: Regular rate and rhythm. LUNGS: Clear to auscultation. ABDOMEN: Soft, nondistended, mild right upper quadrant tenderness but recently medicated with morphine. SKIN: Warm and dry, nonjaundiced. EXTREMITIES: Without edema. LABORATORY DATA: White count is 5200, hemoglobin 12.6, hematocrit 37.1, and platelets 206,000. Sodium 142, potassium 3.3, BUN 19, creatinine 0.7, glucose 95, bilirubin 0.4, AST 11, ALT 16, lipase 124. HCG 24. IMAGING: Gallbladder ultrasound shows a 7-mm gallbladder polyp, similar to 02/07/2017. CT shows cholelithiasis with trace pericholecystic fluid. There is a slightly thickened heterogeneous endometrium. IMPRESSION: Cholelithiasis, acute cholecystitis. PLAN: She is being admitted to the hospitalist service. We will keep her on IV antibiotics overnight. Plan for laparoscopic cholecystectomy with cholangiogram by Dr. Ortega in the morning. She can have clear liquids for now and n.p.o. after midnight. [facility]
--- NOTE | 2017-06-13 15:13 | Progress Note ---
Progress Note Date of Service Jun 13, 2017. Progress Note 27 yo female presented with abdominal pain, nausea and vomiting and is scheduled for lap teresa. Patient is otherwise healthy with no history of anesthetic complications. Of note, patient had a surgical May 07 and imaging today showed a thickened endometrial. UPT was positive with a quant of 24. Spoke to Ana Stafford from [employer] [facility] about possibly consulting OB about why the HCG was still elevated - if this was secondary to from April or something else? Otherwise, patient ok for surgery tomorrow. Pt given instructions to remain NPO after midnight tonight in preparation for OR tomorrow.
[2017-06-13 15:23] VITALS: BP 107/68; PULSE 66; TEMP 36.8; O2SAT 98
[2017-06-13] MEDS: MoRPHine SULFATE 4 MG/ML 1 ML CARP\\VIAL IV PRN (16:13)
[2017-06-13] MEDS: PIPERACILL/TAZOBAC IV 3.375 GM in DEXTROSE 5% 100ML 100 ML IV SCH (19:15)
[2017-06-13] MEDS ORDERED: NURSING VERBAL MED ORDER ONE (20:30)
--- NOTE | 2017-06-13 20:43 | Surgery Consultation ---
Consultation Date of Consultation: Jun 13, 2017. Attending Physician: Cale Barahona M.D. History of Present Illness acute cholecystitis Past Medical/Surgical History Medical Problems: (1) Cholecystitis Status: Acute (2) Epigastric abdominal pain Status: Acute Social History Problems: (1) History of elective Status: Acute Family History Cardiac disorder GRANDMOTHER Diabetes mellitus GRANDFATHER GRANDMOTHER Social History Smoking Status: Never Smoker Alcohol Use: none Drug Use: none Occupation Status: employed (works as [employer]ING [employer]ISH[employer]) Allergies Coded Allergies: Cefaclor (Verified Allergy, Unknown, POSSIBLE RASH CHILD, 06/13/17) PER GRAHAM LOGUIN [id number] INTERVIEW WITH PATIENT- PATIENT STATES ABOVE Home Medications Scheduled Control Pills ( Control Pills), 1 TAB PO DAILY Current Inpatient Medications Current Inpatient Medications Medications (Trade) Dose Ordered Sig/Gil Route Start Time Stop Time Status Last Admin Dose Admin Ioversol (Optiray 320) 125 ml UD PRN IV 06/13/17 11:15 06/17/17 11:14 Ondansetron HCl (Zofran Inj) 4 mg Q6H PRN IV 06/13/17 13:15 07/13/17 13:14 Piperacillin Sod/ Tazobactam Sod 3.375 gm/Dextrose 115 ml @ 28.75 mls/ hr Q8H IV 06/13/17 18:00 06/23/17 17:59 06/13/17 19:15 28.75 MLS/HR Morphine Sulfate (MoRPHine SULFATE INJ) 4 mg Q4H PRN IV 06/13/17 13:30 06/27/17 13:29 06/13/17 16:13 4 MG Potassium Chloride/Sodium Chloride 1,000 ml @ 75 mls/hr [id number] IV 06/13/17 15:00 07/13/17 13:44 06/13/17 14:55 100 MLS/HR Piperacillin Sod/ Tazobactam Sod (Consult) 1 ea UD PRN N/A 06/13/17 14:30 07/13/17 14:29 Review of Systems Abdomen: + pain (none. abd soft small umbilical hernia asymp scar from naval jewelry noted) Physical Exam Date Time Temp Pulse Resp B/P (MAP) Pulse Ox O2 Delivery O2 Flow Rate FiO2 06/13/17 16:00 Room Air 06/13/17 15:23 36.8 66 18 107/68 (81) 98 Room Air 06/13/17 14:00 36.8 64 16 116/75 98 Room Air 06/13/17 13:36 60 109/76 06/13/17 11:05 52 109/64 100 06/13/17 09:02 36.7 86 16 125/85 95 Room Air Laboratory Results Last 24 Hours Test 06/13/17 09:22 White Blood Count 5.20 K/uL Red Blood Count 4.13 M/uL Hemoglobin 12.6 g/dL Hematocrit 37.1 % Mean Corpuscular Volume 89.8 fL Mean Corpuscular Hemoglobin 30.5 pg Mean Corpuscular Hemoglobin Concent 34.0 g/dl Platelet Count 206 K/uL Mean Platelet Volume 10.3 fL Neutrophils (%) (Auto) 49.9 % Lymphocytes (%) (Auto) 41.7 % Monocytes (%) (Auto) 6.5 % Eosinophils (%) (Auto) 1.5 % Basophils (%) (Auto) 0.2 % Neutrophils # (Auto) 2.59 K/uL Lymphocytes # (Auto) 2.17 K/uL Monocytes # (Auto) 0.34 K/uL Eosinophils # (Auto) 0.08 K/uL Basophils # (Auto) 0.01 K/uL RDW Standard Deviation 41.1 fL RDW Coefficient of Variation 12.6 % Immature Granulocyte % (Auto) 0.2 % Immature Granulocyte # (Auto) 0.01 K/uL Urine Color YELLOW Urine Appearance CLEAR Urine pH 6.0 Urine Specific [place] 1.025 Urine Protein NEG Urine Glucose (UA) NEG Urine Ketones NEG Urine Occult Blood NEG Urine Nitrite NEG Urine Bilirubin NEG Urine Urobilinogen NEG Urine Leukocyte Esterase TRACE Urine WBC (Auto) 1-5 /hpf Urine RBC (Auto) 0-4 /hpf Urine Hyaline Casts (Auto) 1-5 /lpf Urine Epithelial Cells (Auto) >30 /lpf Urine Bacteria (Auto) NEG Urine Test POS Sodium Level 142 mmol/L Potassium Level 3.3 mmol/L Chloride Level 107 mmol/L Carbon Dioxide Level 28 mmol/L Anion Gap 7.0 mmol/L Blood Urea Nitrogen 19 mg/dl Creatinine 0.70 mg/dl Est Creatinine Clear Calc Drug Dose 129.4 ml/min Estimated GFR () 136.7 Estimated GFR (Non- 117.9 BUN/Creatinine Ratio 26.9 Random Glucose 95 mg/dl Calcium Level 8.8 mg/dl Magnesium Level 2.1 mg/dl Total Bilirubin 0.2 mg/dl Aspartate Amino Transf (AST/SGOT) 11 U/L Alanine Aminotransferase (ALT/SGPT) 16 U/L Alkaline Phosphatase 67 U/L Total Protein 8.0 gm/dl Albumin 3.9 gm/dl Globulin 4.1 gm/dl Albumin/Globulin Ratio 1.0 Lipase 124 U/L Human Chorionic Gonadotropin, Quant 24 mIU/mL Assessment & Plan see h and p from Ryan Longoria ( i reviewed, examined pt and lab and concurr) plan elma dennis in am r and c explained to ptand wants to proceed with OR
[2017-06-13 22:45] VITALS: BP 97/58; PULSE 50; TEMP 36.8; O2SAT 98
[2017-06-14] VITALS (10 sets, daily range): BP systolic 91–118; BP diastolic 51–78; PULSE 48–73; TEMP 36.4–36.9; O2SAT 95–98
[2017-06-14] MEDS: MoRPHine SULFATE 4 MG/ML 1 ML CARP\\VIAL IV PRN ×3 (00:03→18:34)
[2017-06-14] MEDS: PIPERACILL/TAZOBAC IV 3.375 GM in DEXTROSE 5% 100ML 100 ML IV SCH ×3 (01:57→18:33)
[2017-06-14] MEDS: NSS + 20MEQ KCL 1000ML 1,000 ML IV SCH ×2 (01:58→16:40)
[2017-06-14] MEDS ORDERED: ACETAMINOPHEN 1000 MG/100 ML IV IV ONE (06:01)
[2017-06-14 06:47] LABS: BUN/CREATININE RATIO 9.5 (10-20); CALCIUM 7.7 mg/dl (8.5-10.1); CREATININE 0.8 mg/dl (0.60-1.20); MAGNESIUM 1.7 mg/dl (1.8-2.4); POTASSIUM 3.6 mmol/L (3.5-5.1)
--- NOTE | 2017-06-14 06:58 | DIAGNOSTIC IMAGING REPORT ---
TRANSVAG-FEMALE PELVIS, PELVIC COMPLETE NON OB CLINICAL HISTORY: 27 years-old Female presenting with thickened endometrium on CT, Hcg elevated, surgical in April, now with spotting, no pelvic pain. TECHNIQUE: Real-time grayscale and color and spectral Doppler ultrasound imaging of the pelvis was performed first using a transabdominal probe and subsequently transvaginal for better characterization. COMPARISON: 04/14/2010. FINDINGS: Uterus: Anteverted. The uterus measures 10 x 4.8 x 7.2 cm. Endometrial stripe measures 11 mm in thickness. Endometrium heterogeneously hypoechoic with abnormal vascularity on color Doppler. This abnormal vascularity appears to be largely contained within endometrium, possibly extending minimally into the subjacent myometrium of the posterior wall. Cervix contains nabothian cysts. Right adnexa: Right ovary normal. Right ovary measures 2.9 x 1.3 x 2.0 cm. Normal color Doppler flow and arterial and venous waveforms within the ovarian parenchyma. Left adnexa: Left ovary normal. Left ovary measures 2.7 x 1.7 x 1.2 cm. Normal color Doppler flow and arterial and venous waveforms within the ovarian parenchyma. Other: Trace free fluid, likely physiologic. IMPRESSION: Heterogeneous and prominent endometrium with abnormal vascularity. Given the clinical history of termination of , differential considerations include acquired uterine arteriovenous malformation versus retained products of conception. Gynecologic consultation recommended. Electronically signed by: Esequiel Rick M.D. 06/14/2017 6:57 AM Dictated Date/Time: 06/14/2017 6:51 AM
[2017-06-14] MEDS ORDERED: MAGNESIUM SULFATE 1GM / D5W 1 GM in PREMIXED IN D5W 100 ML IV ONE (07:45)
[2017-06-14] MEDS ORDERED: MIDAZOLAM HCL 1 MG/ML 2ML VIAL ONE (07:50)
[2017-06-14] MEDS ORDERED: FENTANYL CITRATE INJ 50 MCG/1 ML 2 ML VIAL ONE ×2 (07:50→09:41)
--- NOTE | 2017-06-14 08:29 | History & Physical Bridge Note ---
H&P Re-Evaluation Bridge Note: I have examined the patient, reviewed the History & Physical and in the interval since the performance of the History & Physical I have noted the following changes of clinical significance: No changes noted no abd pain ok to proceed with elma dennis SO at bedside
[2017-06-14] MEDS ORDERED: LIDOCAINE/EPINEPHRINE 1% 20 ML VIAL ONE (08:48)
[2017-06-14] MEDS ORDERED: OXYC-57 PO (08:48)
[2017-06-14] MEDS ORDERED: CONRAY 60% 50 ML VIAL ONE (08:49)
--- NOTE | 2017-06-14 08:52 | Discharge Instructions ---
Discharge Instructions Date of Service Jun 14, 2017. Admission Reason for Admission: Abdominal Pain Discharge Discharge Diagnosis / Problem: laparoscopic cholecystectomy Discharge Goals Goal(s): Decrease discomfort Activity Recommendations Activity Limitations: as noted below Lifting Limitations: no more than 10 pounds Shower/Bathe: tomorrow Driving or Machine Use: resume 3 days after discharge . Instructions / Follow-Up Instructions / Follow-Up Dr. Ortega in 1 week, call [phone] to schedule or for any questions, [facility] [address] [place] [address] Follow up with your new primary care provider Dr. Mazariegos on 06/21 at 10:45 AM [address] [facility] , [place] [address] Current Hospital Diet Patient's current hospital diet: Clear Liquid Diet Discharge Diet Recommended Diet: Regular Diet Pending Studies Studies pending at discharge: no Work Instructions Additional Instructions: Off 1-2 weeks Medical Emergencies . Who to Call and When: Medical Emergencies: If at any time you feel your situation is an emergency, please call 911 immediately. . Non-Emergent Contact Non-Emergency issues call your: Surgeon Call Non-Emergent contact if: you have a fever, temperature is above 101.5, your pain is not controlled, wound has increased redness, you have any medication questions . "Provider Documentation" section prepared by Aureliano Longoria. . VTE Core Measure Inpt VTE Proph given/why not?: SCD's [place] Drug Monitoring Program Search Results: no issues identified
[2017-06-14] MEDS ORDERED: FENTANYL CITRATE INJ 50 MCG/1 ML 2 ML VIAL IV PRN (09:30)
[2017-06-14] MEDS ORDERED: EpHEDrine SULFATE INJ 50 MG/ML AMP IV PRN (09:30)
[2017-06-14] MEDS ORDERED: ONDANSETRON INJ 2 MG/ML 2 ML VIAL IV PRN (09:30)
[2017-06-14] MEDS ORDERED: FLUMAZENIL 0.1 MG/1 ML 10 ML VIAL IV PRN (09:30)
[2017-06-14] MEDS ORDERED: LABETALOL HCL IV 5 MG/ML 20ML IV PRN (09:30)
[2017-06-14] MEDS ORDERED: ATROPINE SULFATE 0.1 MG/ML 5ML SYR IV PRN (09:30)
[2017-06-14] MEDS ORDERED: NALOXONE HCL 0.4 MG/1 ML VIAL/CARP IV PRN (09:30)
[2017-06-14] MEDS ORDERED: PROMETHAZINE HCL INJ 12.5 MG in SODIUM CHLORIDE 0.9% 50ML 50 ML IV PRN (09:30)
[2017-06-14] MEDS ORDERED: ROCURONIUM BROMIDE 10 MG/ML 5 ML VIAL IV ONE (09:42)
[2017-06-14] MEDS ORDERED: PROPOFOL IV EMULSION 10 MG/ML 20 ML VIAL IV ONE (09:42)
[2017-06-14] MEDS ORDERED: NEOSTIGMINE METHYLSULFATE 5 MG/5 ML SYR ONE (09:42)
[2017-06-14] MEDS ORDERED: ONDANSETRON INJ 2 MG/ML 2 ML VIAL ONE (09:42)
[2017-06-14] MEDS ORDERED: DEXAMETHASONE SOD INJ 4 MG/ML VIAL ONE (09:42)
[2017-06-14] MEDS ORDERED: LIDOCAINE HCL 2% 2 ML VIAL (20MG/ML) ONE (09:42)
[2017-06-14] MEDS ORDERED: GLYCOPYRROLATE INJ 0.2 MG/ML VIAL ONE ×2 (09:42→10:06)
[2017-06-14] MEDS ORDERED: EpHEDrine SULFATE 50MG/5ML SYR ONE (09:52)
[2017-06-14] MEDS ORDERED: KETOROLAC TROMETHAMINE 30 MG/ML VIAL ONE (10:00)
--- NOTE | 2017-06-14 10:18 | [facility] Post Operative Brief Note ---
Immediate Operative Summary Operative Date Jun 14, 2017. Pre-Operative Diagnosis Cholecystitis Post-Operative Diagnosis Same Procedure(s) Performed Laparoscopic Cholecystectomy with Cholangiogram Surgeon Dr Ortega Back Joiner Surgeon(s) Aureliano Longoria PA-C Estimated Blood Loss 3 ML Findings acute and chronic c and cholelithiasis Specimens A. Gallbladder Complication(s) delay in case hugo 5-7 minutes because light source broken (fibers protruding out ) and needed to get another from down stairs OR summary dictated conf number [id number]
--- NOTE | 2017-06-14 10:42 | OPERATIVE REPORT ---
DATE OF OPERATION: 06/14/2017 SURGEON: Yoan Ortega MD FISH HATCHERY INSPECTOR: Aureliano Longoria PA-C PREOPERATIVE DIAGNOSIS: Acute and chronic cholecystitis, cholelithiasis. POSTOPERATIVE DIAGNOSIS: Same. PROCEDURE: Laparoscopic cholecystectomy, intraoperative cholangiogram. SUMMARY: After induction of general endotracheal anesthesia, the patient's abdomen was prepped with Betadine solution and properly draped. Time out had. Excess time, we noticed that the light course that was set up on the table had fibers protruding through the adapter, certainly came up from downstairs in that fashion. Therefore, we needed to wait about 5-7 minutes to get another light source that is now available in the OR as a backup. After we had reestablished the system, at this point, we made a small incision supraumbilically, but below the jewelry scar that she had had in the naval area. Deep to subcutaneous tissue 5-mm Veress needle introduced, CO2 insufflated followed by 5-mm trocar. Point of entry inspected and no injury identified. Under direct visualization, we placed a 5-mm epigastric, two 5-mm subcostal ports with preemptive analgesia with 0.5% Marcaine without epinephrine. Gallbladder was visualized, placed under traction, it was thick walled and edematous. We dissected out down to area of the triangle of Calot mostly by blunt dissection. We were able to identify the cystic duct and created a window behind the cystic duct and the artery. At this point, we clipped the cystic duct proximally, a small opening in the cystic duct was made. A #4 urethral catheter transversed in the abdominal wall with 14 angiocath was placed in the cystic duct. Serial x-rays were taken, which showed free flow into the duodenum. No obstruction of common bile duct and no dilatation. The cholangiocath was then removed. The cystic duct was doubly clipped and divided. The cystic artery similarly identified, double clipped and divided. The gallbladder was removed in the antegrade fashion using electrocautery at 25. Most of the wall was edematous. Blunt dissection was used for good portion of it. Once we freed the gallbladder from the liver bed, the subhepatic area was checked for hemostasis and appeared satisfactory. Gallbladder was placed in a 5 mm bag up in the epigastric area and taken out intact through the epigastric port. Subhepatic and suprahepatic area was checked. We placed a camera in subcostal ports laterally, visualize the umbilical opening, and there were no adhesions identified in that area. Individual trocars removed. Wounds were closed with 4-0 Monocryl. Steri-Strips applied. The procedure was tolerated well by the patient and was taken to recovery room in good condition. Estimated blood loss approximately 3 mL. I attest to the content of the Intraoperative Record and any orders documented therein. Any exceptions are noted below. MTDD
--- NOTE | 2017-06-14 10:58 | DIAGNOSTIC IMAGING REPORT ---
INTRAOPERATIVE RADIOGRAPHS CLINICAL HISTORY: Intraoperative cholangiogram. Fluoroscopy time: 3 seconds. FINDINGS: 2 spot fluoroscopic views from an intraoperative cholangiogram are correlated with abdominal CT dated 06/13/2017. The gallbladder is surgically absent. There is smooth contrast opacification of the common bile duct. No intra or extrahepatic biliary ductal dilatation is seen. There is smooth passage of contrast into the duodenum, with no evidence of choledocholithiasis. An enteric tube is in place. IMPRESSION: Intraoperative cholangiogram images as above. There is no evidence of choledocholithiasis. Electronically signed by: William Ortega M.D. 06/14/2017 10:57 AM Dictated Date/Time: 06/14/2017 10:55 AM
--- NOTE | 2017-06-14 11:01 | Anesthesiology Progress Note ---
Anesthesia Post Op Note Date & Time Jun 14, 2017 at 11:01 Vital Signs Pain Intensity: 2 Vital Signs Past 12 Hours Date Time Temp Pulse Resp B/P (MAP) Pulse Ox O2 Delivery O2 Flow Rate FiO2 06/14/17 10:50 62 17 116/75 97 Room Air 06/14/17 10:40 81 17 115/72 100 Oxymask 10 06/14/17 10:30 75 14 119/66 100 Oxymask 10 06/14/17 10:23 36.4 79 13 127/73 100 Oxymask 10 06/14/17 08:06 Room Air 06/14/17 06:46 36.8 48 16 109/65 (80) 96 Room Air 06/14/17 00:15 Room Air Notes Mental Status: alert / awake / arousable, participated in evaluation Pt Amnestic to Procedure: Yes Nausea / Vomiting: adequately controlled Pain: adequately controlled Airway Patency, RR, SpO2: stable & adequate BP & HR: stable & adequate Hydration State: stable & adequate Anesthetic Complications: no major complications apparent
[2017-06-14] MEDS: OXYCODONE/ACETAMINOPHEN 5-325 TAB PO PRN (16:07)
--- NOTE | 2017-06-14 19:26 | Progress Note ---
Medicine Progress Note Date & Time of Visit: Jun 14, 2017 at 19:18. Subjective Pt was seen and examined Lying in bed with no distress Objective Last 8 Hrs Date Time Temp Pulse Resp B/P (MAP) Pulse Ox O2 Delivery O2 Flow Rate FiO2 06/14/17 15:25 36.7 65 18 101/64 (76) 97 Room Air 06/14/17 14:30 36.7 66 17 101/60 (74) 98 Room Air 06/14/17 13:37 36.7 71 19 108/70 (83) 97 Room Air 06/14/17 12:24 36.4 71 19 118/78 (91) 97 Room Air 06/14/17 12:01 67 12 108/72 (84) 96 Room Air 06/14/17 11:53 96 Room Air 06/14/17 11:38 36.8 73 16 115/76 (89) 96 Room Air 06/14/17 11:20 36.3 63 13 113/76 96 Room Air Physical Exam: General- No acute distress Head- atraumatic Eyes- PERRL, EOMI ENT- oropharynx clear Neck- supple, no JVD Lungs- clear to auscultation Heart- regular rhythm; no murmur Abdomen- normal bowel sounds, soft Extremities- no calf tenderness Neuro- alert, oriented x 3; PERRL, EOMI; no facial palsy Skin- warm & dry Laboratory Results: Last 24 Hours Test 06/14/17 05:54 Sodium Level 141 mmol/L Potassium Level 3.6 mmol/L Chloride Level 110 mmol/L Carbon Dioxide Level 26 mmol/L Anion Gap 5.0 mmol/L Blood Urea Nitrogen 8 mg/dl Creatinine 0.80 mg/dl Est Creatinine Clear Calc Drug Dose 113.2 ml/min Estimated GFR () 116.3 Estimated GFR (Non- 100.3 BUN/Creatinine Ratio 9.5 Random Glucose 87 mg/dl Calcium Level 7.7 mg/dl Magnesium Level 1.7 mg/dl Total Bilirubin 0.5 mg/dl Direct Bilirubin 0.1 mg/dl Aspartate Amino Transf (AST/SGOT) 6 U/L Alanine Aminotransferase (ALT/SGPT) 14 U/L Alkaline Phosphatase 54 U/L Total Protein 5.8 gm/dl Albumin 2.7 gm/dl Lipase 79 U/L Human Chorionic Gonadotropin, Quant 16 mIU/mL Assessment & Plan ACUTE CHOLECYSTITIS Presents with RUQ pain associated with N/V Afebrile, no leukocytosis CT abdomen shows cholelithiasis with pericholecystic fluid S/P day #0 Laparoscopic cholecystectomy, intraoperative cholangiogram by Dr. Ortega continue pain control Started on clear liquid diet ELECTROLYTES IMBALANCE Mg 1.7 Mg replaced Monitor electrolytes ENDOMETRIAL THICKENING ELEVATED HCG Patient is s/p surgical on 05/07/17 of twins, gestational age between 11 -[address] a/p showed mild endometrial thickening (1.1 cm), Hcg = 24 PA discussed case with Dr. Lara, who said Hcg can take 4-6 weeks to normalize , recommended checking pelvic ultrasound and recheck Hcg in AM to see if it is downtrending, no contraindication to proceeding with surgery if ultrasound WNL B-HCG trending down to 16 DVT PROPHYLAXIS SCD's FULL CODE Disposition Discharge home tomorrow Consultants: Surgery Current Inpatient Medications: Current Inpatient Medications Medications (Trade) Dose Ordered Sig/Gil Route Start Time Stop Time Status Last Admin Dose Admin Ioversol (Optiray 320) 125 ml UD PRN IV 06/13/17 11:15 06/17/17 11:14 Ondansetron HCl (Zofran Inj) 4 mg Q6H PRN IV 06/13/17 13:15 07/13/17 13:14 06/14/17 10:56 4 MG Piperacillin Sod/ Tazobactam Sod 3.375 gm/Dextrose 115 ml @ 28.75 mls/ hr Q8H IV 06/13/17 18:00 06/23/17 17:59 06/14/17 18:33 28.75 MLS/HR Morphine Sulfate (MoRPHine SULFATE INJ) 4 mg Q4H PRN IV 06/13/17 13:30 06/27/17 13:29 06/14/17 18:34 4 MG Potassium Chloride/Sodium Chloride 1,000 ml @ 75 mls/hr [id number] IV 06/13/17 15:00 07/13/17 13:44 06/14/17 16:40 75 MLS/HR Piperacillin Sod/ Tazobactam Sod (Consult) 1 ea UD PRN N/A 06/13/17 14:30 07/13/17 14:29 Oxycodone/ Acetaminophen (Percocet 5-325mg Tab) 2 tab Q4H PRN PO 06/14/17 10:30 06/28/17 10:29 06/14/17 16:07 2 TAB
[2017-06-15] MEDS: OXYCODONE/ACETAMINOPHEN 5-325 TAB PO PRN ×2 (00:56→08:00)
[2017-06-15] MEDS: PIPERACILL/TAZOBAC IV 3.375 GM in DEXTROSE 5% 100ML 100 ML IV SCH (01:53)
[2017-06-15] MEDS: MoRPHine SULFATE 4 MG/ML 1 ML CARP\\VIAL IV PRN (03:04)
[2017-06-15 03:09] VITALS: BP 94/55; PULSE 53; TEMP 36.8; O2SAT 97
[2017-06-15] MEDS: NSS + 20MEQ KCL 1000ML 1,000 ML IV SCH (04:44)
[2017-06-15 07:18] LABS: HEMATOCRIT 31.2 % (37-47); MEAN CELL VOLUME 88.6 fL (80-100); MEAN CORPUSCULAR HEMOGLOBIN 30.4 pg (25-34); MEAN CORPUSCULAR HGB CONC 34.3 g/dl (32-36); MEAN PLATELET VOLUME 10.4 fL (7.4-10.4); PLATELET COUNT 176 K/uL (130-400); RED BLOOD COUNT 3.52 M/uL (4.2-5.4); WHITE BLOOD COUNT 7.19 K/uL (4.8-10.8)
--- NOTE | 2017-06-15 07:34 | SURGERY PROGRESS NOTE ---
DATE: 06/15/2017 SUMMARY: Zuri is first postoperative day status post laparoscopic cholecystectomy and intraoperative cholangiogram. She is resting comfortably. The only discomfort she has after I woke her, she had a little periumbilical discomfort. Intraoperative findings were discussed with the patient. Her last vitals showed a temperature of 36.8, pulse 53, respirations 16, blood pressure 94/55. I&O noted. She had 700 mL of urine overnight. The abdomen is completely benign. The trocar sites healed well. The path is pending. IMPRESSION: At this point the patient can be discharged to return to our office in approximately 1 week. Instructions regarding no lifting greater than 10 pounds for approximately 1 week. No driving for about 3 days. She can shower and probably should be seen. Off work until we see her back in the office. She really should not require anything for pain because Motrin or Advil should be sufficient.
[2017-06-15 07:43] VITALS: BP 83/44; PULSE 60; TEMP 36.9; O2SAT 97
[2017-06-15 07:51] LABS: BUN/CREATININE RATIO 9.2 (10-20); CALCIUM 8.2 mg/dl (8.5-10.1); CREATININE 0.72 mg/dl (0.60-1.20); MAGNESIUM 1.8 mg/dl (1.8-2.4); POTASSIUM 3.5 mmol/L (3.5-5.1)
[2017-06-15 08:00] VITALS: BP 95/54; PULSE 63
[2017-06-15 10:39] VITALS: BP 95/54; PULSE 63; TEMP 36.9; O2SAT 97
--- NOTE | 2017-06-20 11:41 | Discharge Summary ---
Discharge Summary Date of Service Jun 20, 2017. Discharge Summary Admission Date: Jun 13, 2017 at 12:57 Discharge Date: Jun 15, 2017 Discharge Disposition: Home Principal Diagnosis: ACUTE CHOLECYSTITIS Secondary Diagnoses/Problems: ELECTROLYTES IMBALANCE ENDOMETRIAL THICKENING ELEVATED HCG Procedures: Laparoscopic cholecystectomy, intraoperative cholangiogram by Dr. Ortega Consultations: Surgery Medication Reconciliation New Medications: Oxycodone/Acetaminophen 5MG/325MG (Percocet 5MG/325MG) Tab 1-2 TABLETS PO Q4H PRN for Pain, #30 TAB Continued Medications: Control Pills ( Control Pills) Tab 1 TAB PO DAILY, TAB Admission Information HPI (per Admitting provider): This is a 27 year old female who presents to the ED with RUQ abdominal pain. Patient was seen in [facility] ER in January 2017 for RUQ pain and ultrasound showed gallbladder polyp. She was sent home and did not have recurrence until this morning, when she developed pain in RUQ and epigastrium radiating to her back. She states pain waxes and wanes "like contractions". Has associated N/V with multiple episodes of yellow emesis. Nausea is resolved after Zofran given in ER. Pain is now controlled after 2 doses of IV morphine in ER. Last meal was salad at 11 pm last night. Had a normal formed BM this morning. Had surgical on May 07, 2017 of twins at between 11 to 13 weeks gestation per patient. Following procedure she had a few weeks of vaginal bleeding which stopped, then had 4 days of menstruation ending 2 days ago. She is on oral contraception. She denies fever, chills, chest pain, SOB, diarrhea, UTI symptoms. Physical Exam (per Admitting): General Appearance: WD/WN, no apparent distress Head: normocephalic, atraumatic Eyes: normal inspection, sclerae normal ENT: hearing grossly normal, pharynx normal Neck: supple, trachea midline Respiratory/Chest: lungs clear, normal breath sounds, no respiratory distress, no accessory muscle use Cardiovascular: regular rate, rhythm, no edema, no murmur Abdomen/GI: normal bowel sounds, soft, + pertinent finding (tender in RUQ. + Wylie's sign) Extremities/Musculoskelatal: no calf tenderness, no pedal edema Neurologic/Psych: alert, normal mood/affect, oriented x 3 Skin: normal color, warm/dry Hospital Course ACUTE CHOLECYSTITIS Presents with RUQ pain associated with N/V Afebrile, no leukocytosis CT abdomen shows cholelithiasis with pericholecystic fluid S/P day #0 Laparoscopic cholecystectomy, intraoperative cholangiogram by Dr. Ortega continue pain control Started on clear liquid diet ELECTROLYTES IMBALANCE Mg 1.7 Mg replaced Monitor electrolytes ENDOMETRIAL THICKENING ELEVATED HCG Patient is s/p surgical on 05/07/17 of twins, gestational age between 11 -[address] a/p showed mild endometrial thickening (1.1 cm), Hcg = 24 PA discussed case with Dr. Lara, who said Hcg can take 4-6 weeks to normalize , recommended checking pelvic ultrasound and recheck Hcg in AM to see if it is downtrending, no contraindication to proceeding with surgery if ultrasound WNL B-HCG trending down to 16 DVT PROPHYLAXIS SCD's FULL CODE Disposition Discharge home tomorrow Total time spent on discharge = 35 minutes This includes examination of the patient, discharge planning, medication reconciliation, and communication with other providers. Discharge Instructions Discharge Instructions Date of Service Jun 14, 2017. Admission Reason for Admission: Abdominal Pain Discharge Discharge Diagnosis / Problem: laparoscopic cholecystectomy Discharge Goals Goal(s): Decrease discomfort Activity Recommendations Activity Limitations: as noted below Lifting Limitations: no more than 10 pounds Shower/Bathe: tomorrow Driving or Machine Use: resume 3 days after discharge . Instructions / Follow-Up Instructions / Follow-Up Dr. Ortega in 1 week, call [phone] to schedule or for any questions, [facility] [address] [place] [address] Follow up with your new primary care provider Dr. Mazariegos on 06/21 at 10:[address] [place] [address] , [place] [address] Current Hospital Diet Patient's current hospital diet: Clear Liquid Diet Discharge Diet Recommended Diet: Regular Diet Pending Studies Studies pending at discharge: no Work Instructions Additional Instructions: Off 1-2 weeks Medical Emergencies . Who to Call and When: Medical Emergencies: If at any time you feel your situation is an emergency, please call 911 immediately. . Non-Emergent Contact Non-Emergency issues call your: Surgeon Call Non-Emergent contact if: you have a fever, temperature is above 101.5, your pain is not controlled, wound has increased redness, you have any medication questions . "Provider Documentation" section prepared by Aureliano Longoria. . VTE Core Measure Inpt VTE Proph given/why not?: SCD's [place] Drug Monitoring Program Search Results: no issues identified Additional Copies To Ben Cantor M.D.
== END 2017-06-15 10:57 | disposition home or self-care (01) | DRG 419 ==
LOC: C.EDB 09:01 → C.MSN 12:57 → ENRESERV 13:14
PROVIDERS: ADMIT Internal Medicine; ATTEND Internal Medicine
PROC: BF11YZZ Fluoroscopy of Biliary and Pancreatic Ducts using Other Contrast (ICD-10-PCS; 2017-06-14)
PROC: 0FT44ZZ Resection of Gallbladder, Percutaneous Endoscopic Approach (ICD-10-PCS; principal; 2017-06-14 08:30)
DX: K80.12 Calculus of gallbladder with acute and chronic cholecystitis without obstruction (principal); Z87.59 Personal history of other complications of pregnancy, childbirth and the puerperium; Z83.3 Family history of diabetes mellitus; Z82.49 Family history of ischemic heart disease and other diseases of the circulatory system

== ENCOUNTER 2017-10-05 07:15 | Emergency (ER) | payer SELFPAY ==
[~2017-10-05] VITALS: Ht 177.8 cm; Wt 73.3 kg
[~2017-10-05 07:15] MED LIST changes: +OXYC-57 PO; -TRAM-10 PO
[2017-10-05 07:21] VITALS: TEMP 37; Ht 177.8 cm; Wt 73.3 kg
[2017-10-05] MEDS ORDERED: SODIUM CHLORIDE 0.9% 500ML 500 ML IV STA (07:24)
--- NOTE | 2017-10-05 07:50 | EMERGENCY ROOM VISIT NOTE ---
History Report prepared by Maribell: Maida Cramer Under the Supervision of: Dr. Pauline Zelaya M.D. First contact with patient: 07:24 Chief Complaint: ABDOMINAL PAIN Stated Complaint: LLQ PAIN Nursing Triage Summary: left lower abdominal pain. I have ovarian cysts. I found out a couple weeks ago I am . No vaginal bleeding at this time History of Present Illness The patient is a 27 year old female who presents to the Emergency Room with complaints of persistent, worsening left lower quadrant abdominal pain that began yesterday morning. She currently rates her discomfort as a 4/10 in severity. The patient states that she found out a few weeks ago she was . She denies any history of ectopic pregnancies. The patient reports that she has had three pregnancies. She states that she does not see bowling ball molder until October. The patient states that she had a surgical in April. She describes her discomfort as a cramping pain. The patient denies any vaginal bleeding. She reports a history of ovarian cysts and a cholecystectomy. Source of History: patient Onset: yesterday morning Position: abdomen (LLQ) Symptom Intensity: 4/10 Quality: cramping Timing: other (persistent) Review of Systems See HPI for pertinent positives & negatives. A total of 10 systems reviewed and were otherwise negative. Past Medical & Surgical Medical Problems: (1) Abdominal pain (2) Gallbladder polyp (3) Vaginal delivery Surgical Problems: (1) H/O Family History Cardiac disorder GRANDMOTHER Diabetes mellitus GRANDFATHER GRANDMOTHER Gallbladder disease Social History Smoking Status: Never Smoker Alcohol Use: none Drug Use: none Marital Status: Housing Status: lives with significant other Occupation Status: employed Current/Historical Medications No Active Prescriptions or Reported Meds Allergies Coded Allergies: Cefaclor (Verified Allergy, Unknown, POSSIBLE RASH CHILD, 06/13/17) PER GRAHAM OLGUIN [id number] INTERVIEW WITH PATIENT- PATIENT STATES ABOVE Physical Exam Vital Signs Date Time Temp Pulse Resp B/P (MAP) Pulse Ox O2 Delivery O2 Flow Rate FiO2 10/05/17 09:55 81 10/05/17 09:46 70 16 108/58 99 Room Air 10/05/17 08:47 82 18 105/72 100 Room Air 10/05/17 07:52 81 10/05/17 07:21 37.0 86 18 125/82 99 Room Air Physical Exam Vital signs reviewed. General: Well-appearing female, in no significant distress. HEENT: No scleral icterus, PERRLA, neck supple. Atraumatic. Cardiovascular: Regular rate and rhythm, no extra sounds. Pulmonary: Clear to auscultation bilaterally, normal work of breathing. Abdomen: Soft, tender in the left lower quadrant, nondistended, positive bowel sounds. Musculoskeletal: Atraumatic, no peripheral edema. No CVA tenderness. Neurologic: Patient awake alert and oriented x 3 Skin: Warm, dry, no rash Medical Decision & Procedures ER Provider Diagnostic Interpretation: Radiology results as stated below per my review and radiologist interpretation: ULTRASOUND OF THE PELVIS CLINICAL HISTORY: Left pelvic pain. . COMPARISON STUDY: Pelvic ultrasound dated 06/13/[address] dated 06/13/2017. TECHNIQUE: Real-time, grayscale, and color flow sonography of the pelvis is performed both transabdominally and endovaginally. Images are reviewed in the transverse and longitudinal planes. FINDINGS: Uterus: The uterus is normal in size and echotexture, measuring 8.1 x 5.8 x 7.4 cm. Nabothian cysts are incidentally noted in the cervix. Endometrium: The endotracheal stripe appears thickened measuring up to 1.5 cm. There is a 9 mm pocket of fluid within the endometrial canal at the fundal region. No parts are identified. Ovaries: The ovaries are normal in size and morphology. The right ovary measures 3.1 x 1.7 x 2.0 cm and the left ovary measures 2.7 x 1.8 x 1.2 cm. A small follicle and a probable corpus luteum are noted on the right. Normal Doppler waveforms are shown within both ovaries. Pelvis: There is no free fluid in the cul-de-sac. No concerning adnexal lesion is seen. IMPRESSION: 1. There is a small pocket of fluid within the endometrial canal at the fundal region. No parts are identified and this is indeterminant. This may simply represent an intrauterine that is too small to visualize or an in progress. Although no concerning adnexal lesion is identified, in the setting of a positive test without a confirmed intrauterine gestation an ectopic would be impossible to exclude. Close clinical, laboratory, and sonographic follow-up is admitted. 2. As noted above, no concerning adnexal lesion is seen. The ovaries are normal as visualized. Electronically signed by: William Ortega M.D. 10/05/2017 9:16 AM Dictated Date/Time: 10/05/2017 9:09 AM ULTRASOUND OF THE PELVIS CLINICAL HISTORY: Left pelvic pain. . COMPARISON STUDY: Pelvic ultrasound dated 06/13/[address] dated 06/13/2017. TECHNIQUE: Real-time, grayscale, and color flow sonography of the pelvis is performed both transabdominally and endovaginally. Images are reviewed in the transverse and longitudinal planes. FINDINGS: Uterus: The uterus is normal in size and echotexture, measuring 8.1 x 5.8 x 7.4 cm. Nabothian cysts are incidentally noted in the cervix. Endometrium: The endotracheal stripe appears thickened measuring up to 1.5 cm. There is a 9 mm pocket of fluid within the endometrial canal at the fundal region. No parts are identified. Ovaries: The ovaries are normal in size and morphology. The right ovary measures 3.1 x 1.7 x 2.0 cm and the left ovary measures 2.7 x 1.8 x 1.2 cm. A small follicle and a probable corpus luteum are noted on the right. Normal Doppler waveforms are shown within both ovaries. Pelvis: There is no free fluid in the cul-de-sac. No concerning adnexal lesion is seen. IMPRESSION: 1. There is a small pocket of fluid within the endometrial canal at the fundal region. No parts are identified and this is indeterminant. This may simply represent an intrauterine that is too small to visualize or an in progress. Although no concerning adnexal lesion is identified, in the setting of a positive test without a confirmed intrauterine gestation an ectopic would be impossible to exclude. Close clinical, laboratory, and sonographic follow-up is admitted. 2. As noted above, no concerning adnexal lesion is seen. The ovaries are normal as visualized. Electronically signed by: William Ortega M.D. 10/05/2017 9:16 AM Dictated Date/Time: 10/05/2017 9:09 AM Laboratory Results 10/05/17 07:37 Red Blood Count 4.44, Mean Corpuscular Volume 88.7, Mean Corpuscular Hemoglobin 30.4, Mean Corpuscular Hemoglobin Concent 34.3, Mean Platelet Volume 10.0, Neutrophils (%) (Auto) 57.9, Lymphocytes (%) (Auto) 31.5, Monocytes (%) (Auto) 9.1, Eosinophils (%) (Auto) 0.9, Basophils (%) (Auto) 0.2, Neutrophils # (Auto) 3.24, Lymphocytes # (Auto) 1.76, Monocytes # (Auto) 0.51, Eosinophils # (Auto) 0.05, Basophils # (Auto) 0.01 10/05/17 07:37 Test 10/05/17 07:37 10/05/17 07:40 White Blood Count 5.59 K/uL (4.8-10.8) Red Blood Count 4.44 M/uL (4.2-5.4) Hemoglobin 13.5 g/dL (12.0-16.0) Hematocrit 39.4 % (37-47) Mean Corpuscular Volume 88.7 fL (80-100) Mean Corpuscular Hemoglobin 30.4 pg (25-34) Mean Corpuscular Hemoglobin Concent 34.3 g/dl (32-36) Platelet Count 217 K/uL (130-400) Mean Platelet Volume 10.0 fL (7.4-10.4) Neutrophils (%) (Auto) 57.9 % Lymphocytes (%) (Auto) 31.5 % Monocytes (%) (Auto) 9.1 % Eosinophils (%) (Auto) 0.9 % Basophils (%) (Auto) 0.2 % Neutrophils # (Auto) 3.24 K/uL (1.4-6.5) Lymphocytes # (Auto) 1.76 K/uL (1.2-3.4) Monocytes # (Auto) 0.51 K/uL (0.11-0.59) Eosinophils # (Auto) 0.05 K/uL (0-0.5) Basophils # (Auto) 0.01 K/uL (0-0.2) RDW Standard Deviation 41.7 fL (36.4-46.3) RDW Coefficient of Variation 13.0 % (11.5-14.5) Immature Granulocyte % (Auto) 0.4 % Immature Granulocyte # (Auto) 0.02 K/uL (0.00-0.02) Prothrombin Time 10.0 SECONDS (9.0-12.0) Prothromb Time International Ratio 1.0 (0.9-1.1) Activated Partial Thromboplast Time 25.7 SECONDS (21.0-31.0) Partial Thromboplastin Ratio 1.0 Anion Gap 6.0 mmol/L (3-11) Est Creatinine Clear Calc Drug Dose 120.8 ml/min Estimated GFR () 125.7 Estimated GFR (Non- 108.5 BUN/Creatinine Ratio 18.3 (10-20) Calcium Level 8.9 mg/dl (8.5-10.1) Total Bilirubin 0.5 mg/dl (0.2-1) Direct Bilirubin 0.1 mg/dl (0-0.2) Aspartate Amino Transf (AST/SGOT) 14 U/L (15-37) Alanine Aminotransferase (ALT/SGPT) 21 U/L (12-78) Alkaline Phosphatase 78 U/L (45-117) Total Protein 8.1 gm/dl (6.4-8.2) Albumin 3.8 gm/dl (3.4-5.0) Human Chorionic Gonadotropin, Quant 910 mIU/mL Urine Color YELLOW Urine Appearance CLEAR (CLEAR) Urine pH 5.0 (4.5-7.5) Urine Specific [place] 1.034 (1.000-1.030) Urine Protein NEG (NEG) Urine Glucose (UA) NEG (NEG) Urine Ketones NEG (NEG) Urine Occult Blood NEG (NEG) Urine Nitrite NEG (NEG) Urine Bilirubin NEG (NEG) Urine Urobilinogen NEG (NEG) Urine Leukocyte Esterase TRACE (NEG) Urine WBC (Auto) 10-30 /hpf (0-5) Urine RBC (Auto) 0-4 /hpf (0-4) Urine Hyaline Casts (Auto) 5-10 /lpf (0-5) Urine Epithelial Cells (Auto) >30 /lpf (0-5) Urine Bacteria (Auto) 1+ (NEG) Date/Time Source Procedure Growth Status 10/05/17 07:40 Urine , Clean Catch Urine Culture - Final Lactobacillus Species Gardnerella-Like Bacilli Complete Laboratory results per my review. Medications Administered Medications (Trade) Dose Ordered Sig/Gil Route Start Time Stop Time Status Last Admin Dose Admin Sodium Chloride 500 ml @ 999 mls/hr Q31M STAT IV 10/05/17 07:24 10/05/17 07:54 DC 10/05/17 07:47 999 MLS/HR ED Course 0724: Ordered Sodium Chloride 500 ml @ 999 mls/hr IV. 40: Past medical records reviewed. The patient was evaluated in room B6. A complete history and physical examination was performed. 30: I reevaluated the patient and she is resting. I discussed the test results with her and I discussed the treatment plan. She verbalized complete understanding and agreement. bowling ball molder will be consulted. 40: I spoke to Dr. Covington, bowling ball molder. She states that the patient can follow up in the office this week. 1005: I reevaluated the patient and she is doing well. I discussed the treatment plan with her and she verbalized complete understanding and agreement. She is ready to go home. Medical Decision Differential diagnosis: Etiologies such as ectopic , dysfunction uterine bleeding, bleeding dyscrasia, trauma, infection, as well as others were entertained. This pt was evaluated and appeared to be in no distress. PE reveals a tenderness to the LLQ. Lab work reveals a HCG of 900. US of pelvis is as above , without significant adnexal lesion. There is no confirmed IUP. Pt declined pelvic exam as she has one a recently. Pt denies vaginal bleeding. Case was d/ w Dr Covington who agrees pt can be f/u in the office. Appt was made with OBGYN by case management. OBGYN will contact the pt. Pt expressed an understanding of the plan and agrees. Medication Reconcilliation Current Medication List: was personally reviewed by me Consults Time Called: [phone] Consulting Physician: Dr. Covington, bowling ball molder Returned Call: [phone] Covington, bowling ball molder. She states that the patient can follow up in the office this week. Impression Primary Impression: First trimester Additional Impression: Left lower quadrant pain Scribe Attestation The scribe's documentation has been prepared under my direction and personally reviewed by me in its entirety. I confirm that the note above accurately reflects all work, treatment, procedures, and medical decision making performed by me. Departure Information Dispostion Home / Self-Care Prescriptions No Active Prescriptions or Reported Meds Referrals No Doctor, Assigned (PCP) Maggie Covington D.O. Forms HOME CARE DOCUMENTATION FORM, IMPORTANT VISIT INFORMATION Patient Instructions My [facility] Additional Instructions Diagnosis: Left lower quadrant pain, first trimester Please drink plenty of clear fluids. Tylenol 650 mg every 6 hours as needed for pain. [facility] [place] [facility] SPECIALIST will be contacting you today with follow- up appointment within the next [address] Nj was contacted in the emergency department and agrees with this follow-up plan. Return to the emergency department for worsening of symptoms or any medical concerns. Problem Qualifiers
[2017-10-05 07:52] LABS: BASO % 0.2 %; BASO ABS # 0.01 K/uL (0-0.2); COMPLETE YES; EOS % 0.9 %; HEMATOCRIT 39.4 % (37-47); IG% 0.4 %; LYMPH % 31.5 %; LYMPH ABS # 1.76 K/uL (1.2-3.4); MEAN CELL VOLUME 88.7 fL (80-100); MEAN CORPUSCULAR HEMOGLOBIN 30.4 pg (25-34); MEAN CORPUSCULAR HGB CONC 34.3 g/dl (32-36); MONO % 9.1 %; NEUT % 57.9 %; PLATELET COUNT 217 K/uL (130-400); RED BLOOD COUNT 4.44 M/uL (4.2-5.4); WHITE BLOOD COUNT 5.59 K/uL (4.8-10.8)
[2017-10-05 07:52] LABS: URINE APPEARANCE CLEAR (CLEAR); URINE BILIRUBIN NEG (NEG); URINE COLOR YELLOW; URINE EPITHELIAL CELL AUTO >30 /lpf (0-5); URINE NITRITE NEG (NEG); URINE SPECIFIC GRAVITY 1.034 (1.000-1.030); UROBILINOGEN NEG (NEG); ZZUR CULT IF INDIC CLEAN CATCH YES
[2017-10-05 07:58] LABS: MANUAL MICROSCOPIC REQUIRED? NO; REVIEW REQ? NO
[2017-10-05 08:17] LABS: BUN/CREATININE RATIO 18.3 (10-20); CALCIUM 8.9 mg/dl (8.5-10.1); CREATININE 0.75 mg/dl (0.60-1.20); POTASSIUM 3.4 mmol/L (3.5-5.1)
--- NOTE | 2017-10-05 09:17 | DIAGNOSTIC IMAGING REPORT ---
ULTRASOUND OF THE PELVIS CLINICAL HISTORY: Left pelvic pain. . COMPARISON STUDY: Pelvic ultrasound dated 06/13/[address] dated 06/13/2017. TECHNIQUE: Real-time, grayscale, and color flow sonography of the pelvis is performed both transabdominally and endovaginally. Images are reviewed in the transverse and longitudinal planes. FINDINGS: Uterus: The uterus is normal in size and echotexture, measuring 8.1 x 5.8 x 7.4 cm. Nabothian cysts are incidentally noted in the cervix. Endometrium: The endotracheal stripe appears thickened measuring up to 1.5 cm. There is a 9 mm pocket of fluid within the endometrial canal at the fundal region. No parts are identified. Ovaries: The ovaries are normal in size and morphology. The right ovary measures 3.1 x 1.7 x 2.0 cm and the left ovary measures 2.7 x 1.8 x 1.2 cm. A small follicle and a probable corpus luteum are noted on the right. Normal Doppler waveforms are shown within both ovaries. Pelvis: There is no free fluid in the cul-de-sac. No concerning adnexal lesion is seen. IMPRESSION: 1. There is a small pocket of fluid within the endometrial canal at the fundal region. No parts are identified and this is indeterminant. This may simply represent an intrauterine that is too small to visualize or an in progress. Although no concerning adnexal lesion is identified, in the setting of a positive test without a confirmed intrauterine gestation an ectopic would be impossible to exclude. Close clinical, laboratory, and sonographic follow-up is admitted. 2. As noted above, no concerning adnexal lesion is seen. The ovaries are normal as visualized. Electronically signed by: William Ortega M.D. 10/05/2017 9:16 AM Dictated Date/Time: 10/05/2017 9:09 AM
[2017-10-05 09:46] VITALS: BP 108/58; O2SAT 99
[2017-10-05 09:55] VITALS: PULSE 81
== END 2017-10-05 10:12 | disposition home or self-care (01) ==
LOC: C.EDB 07:17
DX: R10.32 Left lower quadrant pain (principal); Z33.1 Pregnant state, incidental; N83.209 Unspecified ovarian cyst, unspecified side; Z83.3 Family history of diabetes mellitus

== ENCOUNTER 2017-11-02 16:26 | Emergency (ER) | payer SELFPAY ==
[~2017-11-02] VITALS: Ht 175.3 cm; Wt 74.9 kg
[2017-11-02 16:32] VITALS: Ht 175.3 cm; Wt 74.9 kg
[2017-11-02] MEDS ORDERED: PRENTAB26 PO (17:41)
[2017-11-02 17:46] LABS: BASO % 0.2 %; BASO ABS # 0.01 K/uL (0-0.2); EOS % 0.2 %; EOS ABS # 0.01 K/uL (0-0.5); HEMOGLOBIN 12.8 g/dL (12.0-16.0); IG# 0.02 K/uL (0.00-0.02); LYMPH % 39.5 %; MEAN CELL VOLUME 88.3 fL (80-100); MEAN CORPUSCULAR HEMOGLOBIN 30.5 pg (25-34); MEAN CORPUSCULAR HGB CONC 34.6 g/dl (32-36); MEAN PLATELET VOLUME 10.3 fL (7.4-10.4); MONO % 9.1 %; MONO ABS # 0.44 K/uL (0.11-0.59); NEUT % 50.6 %; NEUT ABS # 2.43 K/uL (1.4-6.5); PLATELET COUNT 208 K/uL (130-400); RED CELL DISTRIBUTION WIDTH CV 12.7 % (11.5-14.5); WHITE BLOOD COUNT 4.81 K/uL (4.8-10.8)
[2017-11-02 18:09] LABS: CALCIUM 8.6 mg/dl (8.5-10.1); CREATININE 0.55 mg/dl (0.60-1.20); POTASSIUM 3.3 mmol/L (3.5-5.1)
--- NOTE | 2017-11-02 18:09 | EMERGENCY ROOM VISIT NOTE ---
History First contact with patient: 17:12 Chief Complaint: VAGINAL BLEEDING Stated Complaint: , VAGINAL BLEEDING History of Present Illness The patient is a 27 year old female who presents to the Emergency Room with complaints of vaginal bleeding that occurred prior to arrival. The patient is 8 weeks . She just had an appointment with her [facility] doctor last week. An ultrasound was performed. She was told that everything looked good, and the baby had heartbeat. She is having one . She denies any significant pain. No heavy clots. There was a "gush of blood into the toilet. " She denies any lightheadedness, shortness of breath or chest pain. Review of Systems 10 system review performed and negative unless noted in HPI or below Past Medical/Surgical History Medical Problems: (1) Abdominal pain (2) Gallbladder polyp (3) Vaginal delivery Surgical Problems: (1) H/O Family History Cardiac disorder GRANDMOTHER Diabetes mellitus GRANDFATHER GRANDMOTHER Gallbladder disease Social History Smoking Status: Never Smoker Alcohol Use: none Drug Use: none Marital Status: Housing Status: lives with significant other Occupation Status: employed Current/Historical Medications Scheduled Multivit/Min/Iron/Fol Ac/Pren ( Vitamin), 1 TAB PO DAILY Physical Exam Vital Signs Date Time Temp Pulse Resp B/P (MAP) Pulse Ox O2 Delivery O2 Flow Rate FiO2 11/02/17 22:13 74 20 97/62 97 Room Air 11/02/17 21:47 36.9 86 20 106/67 97 11/02/17 18:56 71 16 116/66 98 11/02/17 18:31 72 20 106/59 98 11/02/17 16:32 36.9 80 18 117/70 99 Room Air Physical Exam VITALS: Vitals are noted on the nurse's note and reviewed by myself. Vital signs stable. GENERAL: 27-year-old female, in no acute distress, nondiaphoretic, well- developed well-nourished. SKIN: The skin was without rashes, erythema, edema, or bruising. HEAD: Normocephalic atraumatic. NECK: Supple without nuchal rigidity. HEART: Regular rate and rhythm without murmurs gallops or rubs. LUNGS: Clear to auscultation bilaterally without wheezes, rales or rhonchi. No accessory muscle use. ABDOMEN: Positive bowel sounds x 4.Soft, nontender, without organomegaly. No guarding or rebound tenderness. MUSCULOSKELETAL: No muscle atrophy, erythema, or edema noted. Strength 5/5 throughout. NEURO: Patient was alert and oriented to person place and time. Normal sensation to touch. No focal neurological deficits. Medical Decision & Procedures ER Provider Diagnostic Interpretation: Transvaginal ultrasound Patient Name: HAVEN BULLARD Unit Number: [id number] Dictated: 11/02/171827 Transcribed: 11/02/171827 JA Printed Date/Time: [~ rep prt dt]/[~ rep prt tm] [~ rep ct labl] - [~ rep ct ivnm] [facility] [place]iology [place] [address] Dictated: 11/02/171827 Transcribed: 11/02/171827 RADHA Printed Date/Time: [~ rep prt dt]/[~ rep prt tm] [~ rep ct labl] - [~ rep ct ivnm] IMPRESSION: 1. Single viable intrauterine gestation with estimated gestational age of 8 weeks and 2 days. 2. High normal heart rate of 182 bpm. 3. Suspected 2.6 x 2.4 x 1 cm subchorionic hematoma. Electronically signed by: Jeff Silverio M.D. 11/02/2017 6:32 PM Dictated Date/Time: 11/02/2017 6:28 PM The status of this report is Signed. Draft = Not yet reviewed or approved by Radiologist. Signed = Reviewed and approved by Radiologist. <AttendingPhy></AttendingPhy> <FamilyPhy>No Doctor, Assigned</FamilyPhy> < PrimaryPhy>No Doctor, Assigned</PrimaryPhy> <UnitNumber>[id number]</UnitNumber> <VisitNumber>[id number]</VisitNumber> <PatientName>HAVEN BULLARD</ PatientName> <DateOfBirth>1990</DateOfBirth> <Location>[facility]</Location> < ServiceDate>11/02/17</ServiceDate> <MNE>ESINDI</MNE> <OrderingPhy>Leonora Reyes PA-C</OrderingPhy> <OrderingPhyMNE>f rep ord dr mne</OrderingPhyMNE> < DictatingPhyMNE>f rep dict dr mne</DictatingPhyMNE> <CCListMNE>f rep ct mne</ CCListMNE> <AdmittingPhyMNE>f pt admit dr duncan</AdmittingPhyMNE> <AttendingPhyMNE >f pt attend dr duncan</AttendingPhyMNE> <ConsultingPhyMNE>f pt consult dr duncan</ConsultingPhyMNE> <FamilyPhyMNE>f pt fam dr duncan</FamilyPhyMNE> <OtherPhyMNE>f pt other dr duncan</OtherPhyMNE> < PrimaryPhyMNE>f pt prim care dr duncan</PrimaryPhyMNE> <ReferringPhyMNE>f pt referring dr duncan</ReferringPhyMNE> Laboratory Results 11/02/17 17:32 Red Blood Count 4.19, Mean Corpuscular Volume 88.3, Mean Corpuscular Hemoglobin 30.5, Mean Corpuscular Hemoglobin Concent 34.6, Mean Platelet Volume 10.3, Neutrophils (%) (Auto) 50.6, Lymphocytes (%) (Auto) 39.5, Monocytes (%) (Auto) 9.1, Eosinophils (%) (Auto) 0.2, Basophils (%) (Auto) 0.2, Neutrophils # (Auto) 2.43, Lymphocytes # (Auto) 1.90, Monocytes # (Auto) 0.44, Eosinophils # (Auto) 0.01, Basophils # (Auto) 0.01 11/02/17 17:32 Test 11/02/17 17:32 White Blood Count 4.81 K/uL (4.8-10.8) Red Blood Count 4.19 M/uL (4.2-5.4) Hemoglobin 12.8 g/dL (12.0-16.0) Hematocrit 37.0 % (37-47) Mean Corpuscular Volume 88.3 fL (80-100) Mean Corpuscular Hemoglobin 30.5 pg (25-34) Mean Corpuscular Hemoglobin Concent 34.6 g/dl (32-36) Platelet Count 208 K/uL (130-400) Mean Platelet Volume 10.3 fL (7.4-10.4) Neutrophils (%) (Auto) 50.6 % Lymphocytes (%) (Auto) 39.5 % Monocytes (%) (Auto) 9.1 % Eosinophils (%) (Auto) 0.2 % Basophils (%) (Auto) 0.2 % Neutrophils # (Auto) 2.43 K/uL (1.4-6.5) Lymphocytes # (Auto) 1.90 K/uL (1.2-3.4) Monocytes # (Auto) 0.44 K/uL (0.11-0.59) Eosinophils # (Auto) 0.01 K/uL (0-0.5) Basophils # (Auto) 0.01 K/uL (0-0.2) RDW Standard Deviation 41.0 fL (36.4-46.3) RDW Coefficient of Variation 12.7 % (11.5-14.5) Immature Granulocyte % (Auto) 0.4 % Immature Granulocyte # (Auto) 0.02 K/uL (0.00-0.02) Anion Gap 7.0 mmol/L (3-11) Est Creatinine Clear Calc Drug Dose 159.2 ml/min Estimated GFR () 147.9 Estimated GFR (Non- 127.6 BUN/Creatinine Ratio 16.7 (10-20) Calcium Level 8.6 mg/dl (8.5-10.1) Human Chorionic Gonadotropin, Quant [id number] mIU/mL Medications Administered Medications (Trade) Dose Ordered Sig/Gil Route Start Time Stop Time Status Last Admin Dose Admin Potassium Chloride (Klor-Con M10) 40 meq NOW STAT PO 11/02/17 19:05 11/02/17 19:06 DC 11/02/17 19:25 40 MEQ ED Course Patient was seen and examined Vital signs including blood pressure were reviewed medications list was verified with patient Labs were obtained, and a saline lock was established Imaging was performed The patient was reassessed and resting comfortably in bed. We discussed the results of her workup. The case was discussed with Dr. Brown from [facility]. The patient was given 1 dose of rhogam I reviewed discharge instructions the patient. They voiced understanding and had no further questions. Medical Decision Differential diagnosis: Threatened miscarriage, spontaneous miscarriage, subchorionic hemorrhage, placenta previa, This patient is a 27-year-old female that presents to emergency department with vaginal bleeding in early . On exam, she was nontoxic in appearance. Her vital signs are stable. Her H&H is stable. Her HC Quant is appropriate. An ultrasound was performed and shows a viable with a slightly higher than usual heart rate. It also shows a small subchorionic hematoma, which likely explains her bleeding. The case was discussed with [facility]. She was medicated with Rhogam. I believe she is stable to be discharged home. She will follow-up with [facility]. She was instructed to follow pelvic rest and no strenuous activity. She was comfortable with this plan. She will return to the emergency department with any new or worsening symptoms such as uncontrolled bleeding or severe pain. This chart was completed in part utilizing [employer] Speech Voice Recognition software. Attempts were made to minimize the grammatical errors, random word insertions, pronoun errors and incomplete sentences. Any formal questions or concerns about the content, text or information contained within the body of this dictation should be directly addressed to the provider for clarification. Consults Consulting Physician: Dr. Brown Impression Primary Impression: Vaginal bleeding affecting early Departure Information Dispostion Home / Self-Care Condition GOOD Referrals No Doctor, Assigned (PCP) Jane Dejesus MD Patient Instructions [facility] Additional Instructions You have been seen in the emergency department for vaginal bleeding. This is likely due to a subchorionic hematoma. It is expected that you will have some further bleeding. Please call the [facility] doctor in the morning for follow-up. Pelvic rest-nothing in the vagina. No sexual activity. Do not use tampons. Use pads. Mild activity is okay. No strenuous activity. Tylenol every 6 hours as needed for pain. Please do not hesitate to return to the emergency department with any new, worsening or concerning symptoms; especially, bleeding through 2 pads per hour, heavy clotting or severe pain
--- NOTE | 2017-11-02 18:33 | DIAGNOSTIC IMAGING REPORT ---
TRANSVAGINAL CLINICAL HISTORY: vaginal bleeding, 8 weeks COMPARISON STUDY: ultrasound October 05, 2017. TECHNIQUE: Transabdominal and transvaginal sonography of the pelvis was performed. FINDINGS: Intrauterine gestational sac is noted. The sac diameter is 3.36 cm. This contains a pole with a crown-rump length of 1.77 cm which corresponds to an estimated gestational age of 8 weeks and 2 days. heart rate is 182 bpm. The yolk sac measures 4.9 mm. A 2.6 x 2.4 x 1 cm subchorionic hypoechoic focus suggests a subchorionic hematoma. The cervix is closed. The ovaries are unremarkable. There is a suspected corpus luteal cyst within the right ovary. There was no free fluid. Color flow is identified within each ovary. IMPRESSION: 1. Single viable intrauterine gestation with estimated gestational age of 8 weeks and 2 days. 2. High normal heart rate of 182 bpm. 3. Suspected 2.6 x 2.4 x 1 cm subchorionic hematoma. Electronically signed by: Jeff Silverio M.D. 11/02/2017 6:32 PM Dictated Date/Time: 11/02/2017 6:28 PM
[2017-11-02] MEDS ORDERED: POTASSIUM CHLORIDE 10 MEQ TABCR PO STA (19:05)
[2017-11-02 21:47] VITALS: BP 106/67; PULSE 86; TEMP 36.9; O2SAT 97
[2017-11-02 22:13] VITALS: BP 97/62; PULSE 74; O2SAT 97
== END 2017-11-02 22:20 | disposition home or self-care (01) ==
LOC: C.EDB 16:27 → C.EDC 22:20
DX: O26.851 Spotting complicating pregnancy, first trimester (principal); Z3A.08 8 weeks gestation of pregnancy; Z87.59 Personal history of other complications of pregnancy, childbirth and the puerperium; Z83.3 Family history of diabetes mellitus

== ENCOUNTER → 2018-05-15 | Outpatient (CLI) | payer OTHER ==
[~2018-05-15] MED LIST changes: -BCPILLS PO; -OXYC-57 PO; +PRENTAB26 PO
== END | disposition home or self-care (01) ==
LOC: C.LABSPEC 13:49
PROVIDERS: ATTEND Obstetrics & Gynecology
DX: Z34.83 Encounter for supervision of other normal pregnancy, third trimester (principal)

== ENCOUNTER 2018-06-02 10:21 | Inpatient (IN) | payer OTHER ==
[~2018-06-02] VITALS: Ht 177.8 cm; Wt 86.4 kg
[2018-06-02] MEDS ORDERED: LACTATED RINGER'S 1000ML 1,000 ML IV PRN (10:48)
[2018-06-02] MEDS ORDERED: MISOPROSTOLTAB 50 MCG TAB PV ONE (11:00)
[2018-06-02 11:16] LABS: HEMATOCRIT 31.4 % (37-47); HEMOGLOBIN 10.1 g/dL (12.0-16.0); MEAN CORPUSCULAR HEMOGLOBIN 27.7 pg (25-34); MEAN CORPUSCULAR HGB CONC 32.2 g/dl (32-36); MEAN PLATELET VOLUME 10.2 fL (7.4-10.4); PLATELET COUNT 143 K/uL (130-400); RED CELL DISTRIBUTION WIDTH CV 14.9 % (11.5-14.5); RED CELL DISTRIBUTION WIDTH SD 46.8 fL (36.4-46.3); WHITE BLOOD COUNT 5.57 K/uL (4.8-10.8)
[2018-06-02 11:25] LABS: INR 0.9 (0.9-1.1); PTT PATIENT 23.6 SECONDS (21.0-31.0)
[2018-06-02 11:47] LABS: ALBUMIN 2.6 gm/dl (3.4-5.0); ALKALINE PHOSPHATASE 158 U/L (45-117); ALT/SGPT 12 U/L (12-78); AST/SGOT 18 U/L (15-37); BLOOD UREA NITROGEN 3 mg/dl (7-18); CALCIUM 8.3 mg/dl (8.5-10.1); CARBON DIOXIDE 24 mmol/L (21-32); CREATININE 0.46 mg/dl (0.60-1.20); GLUCOSE 85 mg/dl (70-99); POTASSIUM 3.7 mmol/L (3.5-5.1); SODIUM 136 mmol/L (136-145); TOTAL PROTEIN 6.8 gm/dl (6.4-8.2)
[2018-06-02] MEDS ORDERED: AMOX250C3 PO (12:44)
[2018-06-02 12:45] VITALS: Ht 177.8 cm; Wt 86.4 kg
[2018-06-02] MEDS ORDERED: ACETAMINOPHEN 500 MG TAB PO STA (12:57)
[2018-06-02] MEDS ORDERED: ACETAMINOPHEN 500 MG TAB ONE ×2 (13:07→18:05)
[2018-06-02] MEDS ORDERED: MISOPROSTOLTAB 50 MCG TAB ONE (15:30)
[2018-06-02] MEDS ORDERED: ACETAMINOPHEN 500 MG TAB PO PRN (18:00)
[2018-06-02] MEDS ORDERED: LACTATED RINGER'S 1000ML 500 ML IV PRN ×2 (19:25→21:05)
[2018-06-02] MEDS ORDERED: OXYTOCIN 30 UNITS/500ML NSS IV PRN (19:30)
[2018-06-02] MEDS ORDERED: FENTANYL CITRATE INJ 50 MCG/1 ML 2 ML VIAL ONE (20:13)
[2018-06-02] MEDS: LACTATED RINGER'S 1000ML 1,000 ML IV SCH ×2 (20:13→23:35)
[2018-06-02] MEDS ORDERED: EpHEDrine SULFATE INJ 50 MG/ML AMP ONE (20:13)
[2018-06-02] MEDS ORDERED: BUPIVACAINE 0.25% 30 ML VIAL ONE (20:13)
[2018-06-02] MEDS ORDERED: FENTANYL 2MCG/ML ROPIV 1.25MG/ML 100ML BAG ONE (20:14)
[2018-06-02] MEDS ORDERED: NALOXONE HCL INJ 1 MG in SODIUM CHLORIDE 0.9% 1000ML 1,000 ML IV PRN (21:05)
[2018-06-02] MEDS ORDERED: FENTANYL 2MCG/ML ROPIV 1.25MG/ML 100ML BAG EPI PRN (21:15)
[2018-06-02] MEDS ORDERED: NALOXONE HCL INJ 0.4 MG/1 ML VIAL/CARP IV PRN (21:15)
[2018-06-02] MEDS ORDERED: DiphenhydrAMINE HCL 50 MG/ML VIAL IV PRN (21:15)
[2018-06-02] MEDS ORDERED: EpHEDrine SULFATE INJ 50 MG/ML AMP IV PRN (21:15)
[2018-06-02] MEDS ORDERED: NALBUPHINE HCL INJ 10 MG/ML 1ML AMP IV PRN (21:15)
[2018-06-03] MEDS ORDERED: FENTANYL CITRATE INJ 50 MCG/1 ML 2 ML VIAL ONE ×2 (02:03→03:58)
[2018-06-03] MEDS ORDERED: LIDOCAINE HCL 2% MPF 5 ML VIAL (20MG/ML) ONE (02:03)
[2018-06-03] MEDS ORDERED: MoRPHine SULFATE 10 MG/ML CARP/VIAL IV STA ×2 (04:17→07:00)
[2018-06-03] MEDS ORDERED: PROMETHAZINE HCL INJ 25 MG in SODIUM CHLORIDE 0.9% 50ML 50 ML IV STA (04:17)
[2018-06-03] MEDS ORDERED: CARBOPROST TROMETHAMINE 250 MCG/ML AMP ONE (05:30)
[2018-06-03] MEDS ORDERED: CARBOPROST TROMETHAMINE 250 MCG/ML AMP IM ONE (06:15)
[2018-06-03] MEDS ORDERED: SUPERCREAM 0.870 % 15GM JAR EXT PRN (06:15)
[2018-06-03] MEDS ORDERED: CEFAZOLIN IV 1,000 MG in DEXTROSE 5% 50ML 50 ML IV SCH (06:15)
[2018-06-03] MEDS ORDERED: ACETAMINOPHEN 325 MG TAB PO PRN (06:15)
[2018-06-03] MEDS ORDERED: HYDROCORTISONE ACETATE 25 MG SUPP PR PRN (06:15)
[2018-06-03] MEDS ORDERED: LANOLIN OINT EXT PRN (06:15)
[2018-06-03] MEDS ORDERED: MISOPROSTOL 200 MCG TAB PR SCH (06:15)
[2018-06-03] MEDS ORDERED: BENZOCAINE 20% AER SPR 82.5 GM CAN EXT PRN (06:15)
[2018-06-03] MEDS: OXYTOCIN 30 UNITS/500ML NSS IV PRN ×2 (06:16→11:51)
--- NOTE | 2018-06-03 06:18 | Vaginal Delivery Summary ---
Vaginal Delivery Summary Predelivery diagnoses: 28-year-old 013 at 38 weeks 4 days with intrauterine demise, Rh- status Postdelivery diagnoses: Same plus avulsion of umbilical cord plus hemorrhage Procedures: Spontaneous vaginal delivery, manual extraction of placenta, curettage with banjo curette Surgeon: Dr. Covington Estimated blood loss: 500 mL Findings: Nonviable female infant, small amount of sloughing of skin, no obvious abnormalities. Nuchal cord 1. Complications: Avulsion of umbilical cord requiring manual extraction of placenta, retained placenta requiring curettage with banjo curette, hemorrhage requiring Hemabate and Cytotec Description of delivery: The patient progressed to complete with epidural anesthesia and IV morphine/Phenergan. She then began to push, she spontaneously vaginally delivered a nonviable female from the cephalic presentation. The head delivered in the left occiput anterior position. Nuchal cord 1 was noted and easily reduced. The anterior shoulder was attempted for delivery, but this did not come easily, therefore posterior arm was attempted. This also did not come easily. Therefore, the anterior shoulder was attempted again gently. This time, anterior shoulder delivered, followed by posterior shoulder, followed by body. The baby is placed on mother' s abdomen. The cord was doubly clamped and cut. Active management of the third stage of labor was attempted, with gentle traction on the cord, however this avulsed from the placenta. The placenta was then manually removed removed using operators hand and manual extraction. Pitocin was given. After delivery of the placenta, the patient had multiple small gushes of bright red blood. 1000 mcg of Cytotec was given, as well as 1 dose of Hemabate. A sweep of the uterus revealed retained placental fragments. The patient was given IV morphine for additional pain control, and the banjo curette was used to gently curettage the uterus. Small placental fragments were removed. An additional sweep revealed no remaining placental fragments and excellent hemostasis. The uterus was firm. The cervix vagina and perineum were inspected, no lacerations noted. The patient was evaluated again, and was found to be hemostatic. Sponge , instrument counts were correct at the conclusion of the delivery 2. At this time, mother is recovering in the room in stable and good condition. Patient's family is holding the baby.
[2018-06-03] MEDS ORDERED: NURSING VERBAL MED ORDER ONE ×2 (06:45)
[2018-06-03] MEDS ORDERED: CALCIUM CARBONATE 500 MG CHEWABLE PO PRN ×2 (06:45)
[2018-06-03] MEDS ORDERED: ONDANSETRON INJ 2 MG/ML 2 ML VIAL IV PRN (06:45)
[2018-06-03] MEDS: CLINDAMYCIN IV 900 MG in DEXTROSE 5% 100ML 100 ML IV SCH ×3 (06:59→22:23)
[2018-06-03] MEDS: DOCUSATE SODIUM 100 MG CAP PO SCH ×2 (08:00→20:00)
[2018-06-03] MEDS: IBUPROFEN 600 MG TAB PO PRN ×2 (08:13→20:52)
--- NOTE | 2018-06-03 08:46 | Anesthesia Procedure Note ---
Anesthesia Epidural Removal Nt Date & Time Jun 03, 2018 at 08:46 Vital Signs Pain Intensity: 3.0 Notes Mental Status: alert / awake / arousable, participated in evaluation Nausea / Vomiting: adequately controlled Pain: adequately controlled Airway Patency, RR, SpO2: stable & adequate BP & HR: stable & adequate Hydration State: stable & adequate Neuraxial Anesthesia: was administered Anesthetic Complications: no major complications apparent, pt satisfied with anesthetic care Epidural: removed without complications, with tip intact
[2018-06-03] MEDS: OXYCODONE/ACETAMINOPHEN 5-325 TAB PO PRN (21:42)
[2018-06-04] MEDS: CLINDAMYCIN IV 900 MG in DEXTROSE 5% 100ML 100 ML IV SCH (06:36)
[2018-06-04] MEDS: OXYCODONE/ACETAMINOPHEN 5-325 TAB PO PRN (06:40)
[2018-06-04] MEDS: IBUPROFEN 600 MG TAB PO PRN (06:40)
[2018-06-04 07:00] LABS: HEMATOCRIT 27.2 % (37-47); HEMOGLOBIN 8.6 g/dL (12.0-16.0)
--- NOTE | 2018-06-04 08:15 | Discharge Instructions ---
Discharge Instructions Date of Service Jun 04, 2018. Admission Reason for Admission: 38 Week Demise Discharge Discharge Diagnosis / Problem: s/p vaginal delivery Discharge Goals Goal(s): Routine recovery after delivery Medications Continue Dispensed Medications: supercream, dermaplast, tucks, lansinoh Activity Recommendations Activity Limitations: per Instructions/Follow-up section . Instructions / Follow-Up Instructions / Follow-Up ACTIVITY RECOMMENDATIONS: * Vaginal rest (no tampons, douching, intercourse) until after doctor 's visit. * control as discussed with doctor. * Wear a bra for 24 hours/day for comfort. SPECIAL CARE INSTRUCTIONS: Medications: * vitamins, one tablet daily. Continue taking until prescription is complete. Call you doctor if: * Temperature greater than or equal to 100.4 degrees F or 38.0 degrees C. * Bleeding becomes heavier than the heaviest part of your period - saturating a sanitary pad within an hour. * Passing large clots. * Unrelieved pain. * Bleeding has a foul smelling odor. * Signs and symptoms of phlebitis: leg pain, warm, red or swollen area on leg. ___ incision has increased pain, redness, swelling, presence of any drainage, or if the incision starts to open up. FOLLOW UP VISIT: If appointment is not already scheduled: Please call doctor's office to schedule a follow-up appointment in 2 weeks. Current Hospital Diet Patient's current hospital diet: Regular Diet Discharge Diet Recommended Diet: Regular Diet Pending Studies Studies pending at discharge: no Medical Emergencies . Who to Call and When: Medical Emergencies: If at any time you feel your situation is an emergency, please call 911 immediately. . Non-Emergent Contact Non-Emergency issues call your: Binder Sorter . . "Provider Documentation" section prepared by Leonora Brown. .
[2018-06-04] MEDS: DOCUSATE SODIUM 100 MG CAP PO SCH (08:30)
[2018-06-04 12:35] VITALS: BP_DIAS 73; PULSE 74; TEMP 36.8
[2018-06-04] MEDS ORDERED: BISACODYL 5 MG TABEC PO SCH (20:00)
== END 2018-06-04 12:25 | disposition home or self-care (01) | DRG 767 ==
LOC: C.LD 10:21
PROVIDERS: ADMIT Obstetrics & Gynecology; ATTEND Obstetrics & Gynecology
PROC: 3E0P7GC Introduction of Other Therapeutic Substance into Female Reproductive, Via Natural or Artificial Opening (ICD-10-PCS; 2018-06-02)
PROC: 10E0XZZ Delivery of Products of Conception, External Approach (ICD-10-PCS; principal; 2018-06-03)
PROC: 10D17Z9 Manual Extraction of Products of Conception, Retained, Via Natural or Artificial Opening (ICD-10-PCS; principal; 2018-06-03)
DX: O36.4XX0 Maternal care for intrauterine death, not applicable or unspecified (principal); O72.1 Other immediate postpartum hemorrhage; O69.89X0 Labor and delivery complicated by other cord complications, not applicable or unspecified; Z37.1 Single stillbirth; Z3A.38 38 weeks gestation of pregnancy

== ENCOUNTER 2018-12-31 23:21 | Observation (INO) ==
[2018-12-31] MEDS ORDERED: LACTATED RINGER'S 1,000 ML IV SCH (23:45)
[2018-12-31] MEDS ORDERED: ERYTHROMYCIN 500 MG in SODIUM CHLORIDE 0.9% 250 ML IV SCH (23:45)
[2018-12-31] MEDS ORDERED: BETAMETH SOD PHOS/ACETATE IA 6 MG/ML IM ONE (23:57)
[2019-01-01] MEDS ORDERED: AMPICILLIN 2,000 MG in SODIUM CHLOR 0.9% AD-VAN 100 ML IV SCH
[2019-01-01] MEDS ORDERED: MAGNESIUM SULFATE 4GM / WTR 100 ML BAG IV ONE ×2 (00:11→00:20)
[2019-01-01] MEDS ORDERED: MAGNESIUM SULFATE 40GM / WTR 1,000 ML BAG IV ONE (00:43)
--- NOTE | 2019-01-01 17:09 | Discharge Summary ---
DATE OF ADMISSION: 01/01/2019 ADMISSION HISTORY/TRANSFER NOTE DATE OF TRANSFER: 01/01/2019. ADMITTING DIAGNOSES: 1. Complicated at 24 weeks gestational age. 2. premature rupture of membranes. ADMISSION HISTORY: The patient is a 28-year-old 6, para 4-0-1-3, with an EDC of 04/23/2019 by a 10-week ultrasound, at 24 and 0/7 weeks gestational age, who presents to labor and delivery with leaking of fluid. The patient states that she began leaking fluid at approximately 2100 hours on December 31. She described the fluid as clear, she denies any vaginal bleeding or abdominal cramping. The patient's course has been remarkable for a low lying placenta diagnosed at the time of her anatomy ultrasound. She had an episode of spotting at approximately 15 weeks gestational age. The patient was also evaluated on labor and delivery at 22 weeks for contractions, was found not to be in labor, but had a positive fibronectin test. The patient's last was a 38-week intrauterine demise. No etiology to the demise was ever determined. Laboratory values for this show a blood type of O negative, antibody negative, rubella immune, hepatitis B negative. She had a normal 1-hour Glucola at 16 weeks, she had a negative cell-free DNA screening. PAST MEDICAL HISTORY: OB: x4 with 1 intrauterine demise. COMMUNITY ORGANIZATION DIRECTOR: None. MEDICAL: Anxiety. SURGICAL: Cholecystectomy. ALLERGIES: CECLOR. SOCIAL HISTORY: No smoking. FAMILY HISTORY: Noncontributory. REVIEW OF SYSTEMS: As per HPI. ADMISSION PHYSICAL EXAMINATION: GENERAL: Showed a gravid female in no acute distress. VITAL SIGNS: Blood pressure 124/65, weight of 175 pounds and a temp of 36.9. HEENT EXAMINATION: Unremarkable. NECK: Supple. LUNGS: Clear. HEART: With a regular rhythm and rate. ABDOMEN: Gravid, breech. Positive heart tones. No palpable contractions. PELVIC: Sterile speculum examination shows gross rupture of fluid with pooling in the posterior fornix. Positive ferning. EXTREMITIES: Shows no deep calf tenderness. NEUROLOGIC: Grossly intact. INDICATION: A 28-year-old 6, para 4-0-1-3 at 24 and 0/7 weeks gestational age with premature rupture of the membranes. PLAN: The diagnosis has been explained to the patient. The need to transfer to a maternal medicine specialist in a level 3 nursery has been explained. [facility], Dr. White, has agreed to accept the patient in transport. The patient is clinically stable and not actively nisha. The patient will be transported by ambulance. Risks, benefits, and alternatives to the transport have been discussed while benefits will be transported to a level 3 nursery, the risks are a motor vehicle accident. Permit has been signed. The patient will be started on ampicillin 2 grams IV. She will also receive Celestone 12 mg IM prior to discharge. The patient will get magnesium 4 gram IV loading dose, then 2 grams per hour per recommendation of maternal medicine at [place].
--- NOTE | 2019-01-02 07:00 | Discharge Summary ---
Date of Service January 02, 2019
== END 2019-01-01 00:45 | disposition short-term general hospital (02) ==
LOC: OPB 23:21 → 4S1 23:21 → 4S2 01-01 01:38